=== PATIENT | female | born 1935 | race Caucasian/White ===

== ENCOUNTER 2016-07-12 13:34 | Inpatient (IN) | payer OTHER ==
[2016-07-12] MEDS ORDERED: IPRATROPIUM/ALBUTEROL 3 ML DEYVIAL IH ONE (13:58)
[2016-07-12] MEDS ORDERED: ALBUTEROL 3 ML DEYVIAL IH ONE (14:19)
[2016-07-12] MEDS ORDERED: predniSONE 20 MG TAB PO ONE (14:19)
--- NOTE | 2016-07-12 14:21 | EDPHY ---
HPI/HX/ROS/PE/MDM Narrative: Chief complaint: Cough, shortness of breath, chest pain HPI: Patient has a history of asthma for she usually takes albuterol as needed. She is visiting from [facility], arrived here 5-6 months ago. Has had worsening cough for the last 5 days, cough is productive of yellowish sputum. Some subjective fevers and chills but temperature is not measured at home. She has been complaining of worsening shortness of breath and fatigue. She is also having some chest pain, worsening with cough. No nausea or vomiting. Has a using her nebulizer without any significant relief. There has never been intubated in the past but does not take any chronic control medications. Patient only speaks Montserratian, translation is done with family members. ROS: 10 point Review of Systems is negative except as noted in the HPI. Physical exam: Gen: Awake, Alert, No Distress HEENT: Nose: no rhinorrhea Eyes: PERRLA, EOMI Mouth: Moist mucosa Neck: Supple, no JVD Chest: nontender, diffuse expiratory wheeze Heart: S1, S2 normal, no murmur Abd: Soft, non-tender, no guarding Back: no CVA tenderness, no midline tenderness Ext: no edema, non-tender Skin: no rash Neuro: CN II-XII intact, Sensation grossly intact, Strength 5/5 in bilateral upper and lower extremities ED Course: Chest x-ray: Diffuse infiltrates primarily greatest in the right upper lobe. Discussed with Dr. Guerra. Patient's chest x-ray is consistent with pneumonia. Blood cultures have been sent. She is getting any continues him at this time. I have ordered azithromycin and ceftriaxone. Will discuss with hospitalist for admission. - Data Points Laboratory Results: Laboratory Results 07/12/16 14:46 07/12/16 14:25 07/12/16 07/12/16 14:46 14:25 WBC 5.50 10^3/uL REJ (3.80-9.50) RBC 4.99 10^6/uL Not Reported (4.18-5.33) Hgb 13.2 g/dL Not Reported (12.6-16.3) Hct 40.9 % Not Reported (38.0-47.0) MCV 82.0 fL Not Reported (81.5-99.8) MCH 26.5 L pg Not Reported (27.9-34.1) MCHC 32.3 L g/dL Not Reported (32.4-36.7) RDW 16.0 H % Not Reported (11.5-15.2) Plt Count 139 L 10^3/uL Not Reported (150-400) MPV 10.0 fL Not Reported (8.7-11.7) Neut % (Auto) 65.0 % Not Reported (39.3-74.2) Lymph % (Auto) 21.8 % Not Reported (15.0-45.0) Coleman % (Auto) 12.5 % Not Reported (4.5-13.0) Eos % (Auto) 0.0 L % Not Reported (0.6-7.6) Baso % (Auto) 0.2 L % Not Reported (0.3-1.7) Nucleat RBC Rel Count 0.0 % Not Reported (0.0-0.2) Absolute Neuts (auto) 3.57 10^3/uL Not Reported (1.70-6.50) Absolute Lymphs (auto) 1.20 10^3/uL Not Reported (1.00-3.00) Absolute Monos (auto) 0.69 10^3/uL Not Reported (0.30-0.80) Absolute Eos (auto) 0.00 L 10^3/uL Not Reported (0.03-0.40) Absolute Basos (auto) 0.01 L 10^3/uL Not Reported (0.02-0.10) Absolute Nucleated RBC 0.00 10^3/uL Not Reported (0-0.01) Immature Gran % 0.5 % Not Reported (0.0-1.1) Immature Gran # 0.03 10^3/uL Not Reported (0.00-0.10) Sodium 134 mEq/L (134-144) Potassium 5.0 mEq/L (3.5-5.2) Chloride 96 L mEq/L (97-110) Carbon Dioxide 27 mEq/l (22-31) Anion Gap 11 mEq/L (8-16) BUN 12 mg/dL (7-23) Creatinine 0.7 mg/dL (0.6-1.0) Estimated GFR > 60 Glucose 92 mg/dL (70-100) Calcium 9.2 mg/dL (8.5-10.4) Medications Given: Discontinued Medications Albuterol (Proventil Neb) 10 ml IH CONT ONE Stop: 07/12/16 14:20 Last Admin: 07/12/16 14:51 Dose: 10 ml Albuterol/Ipratropium (Duoneb) 3 ml IH EDNOW ONE Stop: 07/12/16 13:59 Last Admin: 07/12/16 14:05 Dose: 3 ml Prednisone (Prednisone) 60 mg PO EDNOW ONE Stop: 07/12/16 14:20 Last Admin: 07/12/16 14:51 Dose: 60 mg General Time Seen by Provider: 07/12/16 14:07 Initial Vital Signs: Initial Vital Signs Temperature (C) 36.8 C 07/12/16 13:46 Heart Rate 104 H 07/12/16 13:46 Blood Pressure 156/116 H 07/12/16 13:46 O2 Sat (%) 83 L 07/12/16 13:46 O2 Delivery Mode Room Air O2 (L/minute) 3 Allergies/Adverse Reactions: No Known Allergies Allergy (Unverified 07/12/16 13:53) Home Medications: Medication Instructions Recorded NK [No Known Home Meds] 07/12/16 Departure - Departure Disposition: [facility] Inpatient Acute Clinical Impression: Pneumonia Condition: Fair
[2016-07-12 14:48] LABS: ANION GAP 11 mEq/L (8-16); CALCIUM 9.2 mg/dL (8.5-10.4); CARBON DIOXIDE 27 mEq/l (22-31); CHLORIDE 96 mEq/L (97-110); CREATININE 0.7 mg/dL (0.6-1.0); GLOMERULAR FILTRATION RATE > 60; GLUCOSE 92 mg/dL (70-100); SODIUM 134 mEq/L (134-144)
[2016-07-12 14:53] LABS: % IMMATURE GRANULYOCYTES 0.5 % (0.0-1.1); ABSOLUTE IMMATURE GRANULOCYTES 0.03 10^3/uL (0.00-0.10); ADD DIFF? NO; ADD MORPH? NO; ADD SCAN? NO; ATYPICAL LYMPHOCYTE FLAG 70 (0-99); FRAGMENT RBC FLAG 0 (0-99); HEMATOCRIT 40.9 % (38.0-47.0); HEMOGLOBIN 13.2 g/dL (12.6-16.3); LEFT SHIFT FLG 10 (0-99); LIPEMIA HEMOLYSIS FLAG 80 (0-99); MEAN CELL HEMOGLOBIN 26.5 pg (27.9-34.1); MEAN CELL HEMOGLOBIN CONCENTR. 32.3 g/dL (32.4-36.7); PLATELET CLUMPS FLAG 10 (0-99); PLATELET COUNT 139 10^3/uL (150-400); RED BLOOD CELL COUNT 4.99 10^6/uL (4.18-5.33)
[2016-07-12] MEDS ORDERED: AZITHROMYCIN 250 MG TAB PO ONE (15:09)
--- NOTE | 2016-07-12 15:11 | DX ---
Chest, Two Views - July 12, 2016 at 1412 hours History: Shortness of breath, possible pneumonia Comparison: None. Findings: Cardiac silhouette is mildly enlarged with atherosclerotic aorta. Thoracic dextroscoliosis. No pneumothorax. Bilateral diffuse interstitial opacities with more focal alveolar opacity in the ri ght upper lobe, consistent with bilateral pneumonia. Mid thoracic compression fracture. Impression: 1. Bilateral diffuse pneumonia, worse in the right upper lobe. 2. Midthoracic compression fracture. Consider DEXA bone scan evaluation. Findings and recommendations discussed with Emergency Department physician, Dr. Oscar Snyder, at 1 505 hours, July 12, 2016. Final report concurs with initial preliminary interpretation.
[2016-07-12] MEDS ORDERED: ONDANSETRON 4 MG/2 ML VIAL IVP PRN (15:56)
[2016-07-12] MEDS ORDERED: ONDANSETRON DISINTEGRATING 4 MG TAB PO PRN (15:56)
[2016-07-12] MEDS ORDERED: ACETAMINOPHEN 325 MG TAB PO PRN (15:56)
--- NOTE | 2016-07-12 16:40 | GHP ---
[f rep st] HISTORY AND PHYSICAL DATE OF ADMISSION: 07/12/2016 CHIEF COMPLAINT: Acute hypoxic respiratory failure, asthma. HISTORY OF PRESENT ILLNESS: The patient is a Swiss-speaking female presenting with significant shortness of breath for the past 5 days. It became so significant today that her grandchildren brought her in. Symptoms have been occurring for the past 5-6 days including shortness of breath, dry cough. Denies fevers, chills or sweats. Has had a sore throat. Denies headache or weight loss. Has had a decreased appetite and oral intake. Granddaughter and have been sick recently. Just moved from [facility] 5 months ago. She is living in [place] with grandchildren. She did receive a flu and Pneumovax shot this year. Denies myalgias, diarrhea, nausea or vomiting. No hemoptysis. REVIEW OF SYSTEMS: I completed a 10-point review of systems, negative, except as noted in HPI. PAST MEDICAL HISTORY: Asthma. PAST SURGICAL HISTORY: None. SOCIAL HISTORY: Moved from [facility] 5 months ago. Lives with her granddaughter. No alcohol, tobacco or illicits. MEDICATIONS: Asthma inhaler. Recent Pneumovax and influenza vaccines. ALLERGIES: No known drug allergies. PHYSICAL EXAM: VITAL SIGNS: Temperature is 36.8, blood pressure is 156/116, heart rate 104, respirations 20, 83% on room air, 96% on 3 liters. GENERAL: Patient is tired-appearing, sitting up in bed. HEENT: PERRLA, EOMI. Oropharynx clear. CV: Tachy, regular rate and rhythm. No murmurs, gallops or rubs. LUNGS: Mild inspiratory wheezing. No crackles or rhonchi. ABDOMEN: Soft, nontender, nondistended. Positive bowel sounds. : No suprapubic tenderness. MUSCULOSKELETAL: 5/5 upper or lower extremity strength. No joint swelling or pain. SKIN: Warm and dry. No ulceration. NEURO: 2 through 12 intact. PSYCH: Alert oriented x3. She is answering questions via her grandchildren in Swiss. LABS: Influenza is pending. Sodium 134, potassium 5.2, chloride 96, carbon dioxide 27, BUN 12, creatinine 0.7, glucose 92, calcium 9.2. WBC 5.9, hemoglobin 13, hematocrit 40, platelets 139. Chest x-ray: Bilateral infiltrates worse in the right upper lobe. I did review the scan with Dr. Guerra. Does not note any cavitary lesions. ASSESSMENT AND PLAN: 1. Acute hypoxic respiratory failure: due to asthma exacerbation. Trigger being viral versus bacterial infection. Would expect patient to have fevers and leukocytosis if this was bacterial. She has had only a dry cough. Influenza is pending. She received ceftriaxone and azithromycin here; cont these for now. Given that the patient is from [facility] and at high risk for TB, I will further evaluate chest with non-con CT, check AFB. Check urine strep and Legionella. Continue DuoNebs. Hold off on Pred until CT scan results. 2. Tachycardia: secondary to nebs versus dehydration. Will give gentle fluids. 3. Mild thoracic compression fracture: incidental on chest x-ray. The patient currently denies pain. Can check a vitamin D level. 4. Diet: Regular. 5. DVT prophylaxis: Lovenox. DISPOSITION: Patient warrants inpatient admission given acute hypoxic respiratory failure, quarantine, DuoNebs, oxygen and further chest imaging. /[id number]/MODL MTDD
--- NOTE | 2016-07-12 17:11 | CT ---
CT Chest Unenhanced History: Shortness of breath, cough, abnormal chest radiograph, recent travel from [facility]. Comparison: PA and lateral chest same day at 1412 hours. Technique: Axial unenhanced images were obtained through the chest. Coronal MIPs were performed. Dose reduction techniques were utilized. Findings: There are numerous noncalcified centrilobular nodules in the right upper lobe with patchy p redominantly peripheral consolidation in the right upper lobe, with tree-in-bud opacities and diffuse peribronchial thickening and mucous plugging throughout both lungs. There is complete atelectasis of the right middle lobe. Scattered bullae are present. There is no appreciable cavitation. Heart size is normal. A tiny pericardial effusion is present. Atherosclerosis is present in a normal caliber ao rta. Adenopathy including internal mammary and hilar adenopathy is noted. A precarinal lymph node marty sures approximately 2.4 x 1.5 cm (series 3 image 66). A severe compression fracture at T7 is age inde terminate, likely old, without retropulsion. A 26 Hounsfield unit 2.0 x 1.6 cm subcapsular structure in the right hepatic lobe (series 3 image 179) is incompletely visualized. Impression: 1. Tree-in-bud nodules, consolidation and noncalcified nodules in the right upper lobe with adenopath y, suspicious for tuberculosis. This could also be seen with atypical pneumonia, MARIA VICTORIA, or other etiolo gies. 2. Indeterminate hypodensity in the liver. Ultrasound or multiphase contrast-enhanced CT or MRI is re commended for further evaluation. 3. Complete right middle lobe atelectasis. 4. Peribronchial thickening with extensive mucous plugging. 5. Small pericardial effusion. 6. Age indeterminate likely old severe T7 compression fracture. 7. Additional findings as above. Findings discussed with Dr. Oscar Snyder, on July 12, 2016 at 1655 hours.
[2016-07-12] MEDS ORDERED: IPRATROPIUM/ALBUTEROL 3 ML DEYVIAL ONE (18:15)
[2016-07-12] MEDS: IPRATROPIUM/ALBUTEROL 3 ML DEYVIAL IH SCH (18:26)
[2016-07-13] MEDS ORDERED: OSELTAMIVIR PHOSPHATE 75 MG CAP ONE (00:35)
[2016-07-13] MEDS: OSELTAMIVIR PHOSPHATE 75 MG CAP PO SCH ×2 (01:46→09:18)
[2016-07-13 06:27] LABS: HEMATOCRIT 41.8 % (38.0-47.0); HEMOGLOBIN 13.3 g/dL (12.6-16.3); MEAN CELL HEMOGLOBIN 25.7 pg (27.9-34.1); MEAN CELL HEMOGLOBIN CONCENTR. 31.8 g/dL (32.4-36.7); MEAN CELL VOLUME 80.7 fL (81.5-99.8); RED BLOOD CELL COUNT 5.18 10^6/uL (4.18-5.33); RED CELL DISTRIBUTION WIDTH 16.3 % (11.5-15.2)
[2016-07-13 06:59] LABS: ANION GAP 11 mEq/L (8-16); CALCIUM 9.3 mg/dL (8.5-10.4); CARBON DIOXIDE 27 mEq/l (22-31); CHLORIDE 97 mEq/L (97-110); CREATININE 0.8 mg/dL (0.6-1.0); GLOMERULAR FILTRATION RATE > 60; GLUCOSE 124 mg/dL (70-100); POTASSIUM 5.1 mEq/L (3.5-5.2); SODIUM 135 mEq/L (134-144)
[2016-07-13] MEDS: IPRATROPIUM/ALBUTEROL 3 ML DEYVIAL IH SCH ×5 (08:32→22:14)
[2016-07-13] MEDS: AZITHROMYCIN 250 MG TAB PO SCH (09:17)
[2016-07-13] MEDS: ENOXAPARIN 40 MG/0.4 ML SYR SC SCH (09:18)
[2016-07-13] MEDS: NS 1,000 ML IV SCH (09:28)
[2016-07-13] MEDS ORDERED: predniSONE 20 MG TAB PO ONE (13:40)
[2016-07-13] MEDS ORDERED: ALBUTEROL 3 ML DEYVIAL IH PRN (13:40)
--- NOTE | 2016-07-13 14:24 | GCON ---
[f rep st] CONSULTATION INFECTIOUS DISEASE CONSULTATION DATE OF CONSULTATION: 07/13/2016 REFERRING PHYSICIAN: Lucero Mays MD REASON FOR CONSULTATION: Pneumonia with possible TB for further evaluation and opinion. CHIEF COMPLAINT: Shortness of breath. HISTORY OF PRESENTING ILLNESS: This is a 80-year-old [place]er female with a past medical history si gnificant for asthma, who was brought in yesterday after increasing shortness of breath over the pas t 5-6 days. She apparently came here about 5 months ago and is just visiting. She is planning to b e here for a possible 6 months, but the family is working on a [employer] extension at present. She state s that she has always had some intermittent coughing with phlegm, but does not recall having any blo od-streaked sputum or bloody sputum. Over the past 5-6 days she has been having increasing shortnes s of breath with cough with minimal sputum production. She was seen at [facility] and was advised to come here for further evaluation. In the ER, they did a chest x-ray which showed bilateral diffuse pneumonia, worse on the right upper lobe. This was followed up by a CAT scan, which showed tree-in- bud nodules, consolidation and noncalcified nodules in the right upper lobe with adenopathy suspicio us for tuberculosis. She also had complete middle lobe atelectasis. Blood cultures x2 sets were do ne. A sputum culture was done and the sputum was sent for AFB. She remains in airborne isolation a t present. She is on O2 via nasal cannula at 3 L, but was as high as 7 L early this morning. She w as started empirically on antibiotics with ceftriaxone and azithromycin. She had a flu A and B PCR that was done, which is now positive for influenza A. She has now been started on Tamiflu as well. According to the daughter, she has never been diagnosed with tuberculosis and has had no known cont acts with tuberculosis in [facility] or here. There have been several family members who have been sick here, including patient's , as well as the patient's daughter who live here. They cannot tel l me if they have all been officially or formally diagnosed with influenza or not, but have certainl y had respiratory symptoms. Per the granddaughter, nobody has been coughing up bloody sputum. Infe ctious Disease is now consulted for further evaluation and opinion of above. History is obtained pu rely from the medical records, as well as the granddaughter's translation to the patient as patient does not speak Egyptian. REVIEW OF SYSTEMS: GENERAL: Denies any fever or shaking chills. Occasionally does have drenching night sweats and has had those for several months. Having a mild headache at present. EYES: No ch dov in vision. ENT: No sore throat, difficulty swallowing ear pain or drainage. She denies choki ng on her food. She is edentulous and has dentures. CARDIOVASCULAR: Denies any chest pain or rapi d heart beat. RESPIRATORY: Shortness of breath, cough, and sputum production. ABDOMEN: No nausea , vomiting, abdominal pain, or diarrhea. : No dysuria. BACK: No back pain or flank pain. EXTR EMITIES: Denies any swelling of the legs. MUSCULOSKELETAL: Occasional joint pains, but no joint s welling. SKIN: Denies any rashes or open wounds. Rest of 10-point review of systems essentially negative, except for above. PAST MEDICAL HISTORY: Significant for asthma and hypothyroidism. PAST SURGICAL HISTORY: None. SOCIAL HISTORY: She is visiting family here from [facility] and came here 5 months ago. She used to smo ke several years ago, but does not smoke currently. Does not drink alcohol or use illicit drugs. S he, after coming here, was given the influenza vaccine, as well as a Pneumovax vaccine from the [facility]. The granddaughter also says that she was worked up for TB in [facility] with a chest x-ray, which apparently was negative. They cannot tell me if she has had any skin testing or any other ty pe of workup for tuberculosis. ALLERGIES: No known drug allergies. PHYSICAL EXAM: VITALS: Temperature current 36.9, pulse is 87, blood pressure 126/68, saturations a re 97% on 3 L O2 via nasal cannula, respiratory rate is 18. GENERAL: Patient is sitting up in bed, with some shortness of breath and tachypnea. HEENT: Head is normocephalic, atraumatic. Eyes are without conjunctival injection or petechiae noted. Oropharynx is clear. No posterior pharyngeal er ythema or thrush. She is edentulous. CARDIOVASCULAR: S1, S2. Regular rate and rhythm. No obviou s murmurs appreciated. RESPIRATORY: Coarse breath sounds bilaterally with wheezing appreciated. A BDOMEN: Positive bowel sounds in all 4 quadrants. Soft, nontender, nondistended. No organomegaly appreciated. EXTREMITIES: No obvious lower extremity edema. MUSCULOSKELETAL: No joint effusions appreciated or pain on palpation of the joints. SKIN: No obvious rashes or open wounds. LABS: White blood cell count is 8.3, hemoglobin 13.3, platelets are 186. Sodium 135, potassium 5.1 , chloride is 97, bicarb is 27, BUN is 16, creatinine 0.8, glucose is 124. Influenza A and B PCR po sitive. Urine Legionella pending. Urine streptococcal pneumoniae pending. Microbiology: Blood cult ures x2 sets are pending. Sputum culture with 2+ polys and rare gram-positive cocci in clusters. C ulture is pending, and AFB sputum x1 is pending. ASSESSMENT: 1. Influenza A with possible superimposed bacterial pneumonia. 2. Right upper lobe consolidation with nodules in a tree-in-bud fashion and adenopathy. rule out fo r TB. PLAN: For now, given her underlying background, CAT scan findings would continue workup for tubercu losis. Maintain in airborne precautions until 3 negative sputums for AFB. Will check a T spot on h er as well, collect 2 more sputums for AFB for further evaluation. Await sputum culture. Await blo od cultures. Continue with empiric antimicrobials with ceftriaxone and azithromycin for now, and co ntinue Tamiflu as well. The above plan was explained to the granddaughter in detail. Thank you very much for providing this opportunity to care for your patient in consultation. Will yasemin huangw CAT scan further with Radiology. /[id number]/MODL
--- NOTE | 2016-07-13 14:56 | HOSPPROG ---
Hospitalist Progress Note Assessment/Plan: 80 yo F visiting from [facility] presenting wit acute hypoxic respiratory failure and pna # acute hypoxic respiratory failure: 2/2 PNA and likely exacerbation of RAD with diffuse wheezing/rales and increased wob on exam. Presented at 83% on RA on arrival and has required from 3-7 L of supplemental o2 to maintain o2 sats in the 90s. Tx for PNA as below, nebs scheduled. # PNA: influenza positive but suspect simultaneous bacterial pna. Chest CT personally reviewed and interpreted and notable for "tree in bud" nodules as well as consolidation in RUL concerning for TB. Patient states she has previously been tested for TB and did not have it, unclear what testing was performed. ID consulted, AFB cultures pending, on airborne precautions and negative pressure for now, continue ctx/azithro for CAP coverage. # influenza: contributing to above, started on tamiflu # thoracic compression fracture: noted incidentally on imaging, not symptomatic , defer to pcp starting tx for osteoporosis. Vitamin D levels normal. # dispo: IP status, will need > 48 hours stay for eval/mgmt of above Patient new to my care. Old records reviewed and summarized as above. Care plan reviewed with ID as above. Subjective: no significant overnight events, patient says via public relations supervisor that she feels better, that she has no pain and that her breathing is "sometimes like this" Objective: Vital Signs Temp Pulse Resp BP Pulse Ox 36.9 C 87 18 126/68 H 86 L 07/13/16 11:04 07/13/16 11:04 07/13/16 11:04 07/13/16 11:04 07/13/16 14:00 Microbiology 07/12/16 22:30 - Final Sputum, Induced/Suctioned Laboratory Results 07/13/16 06:00 07/13/16 06:00 awake alert thin chronically ill appearing anicteric op clear rrr no mrg soft nt nd no cce warm dry well perfused oriented appropirate - Time Spent With Patient Time Spent with Patient: greater than 35 minutes Time Spent with Patient: Greater than 35 minutes spent on this patients care, greater than 50% of time spent counseling, educating, and coordinating care regarding the above mentioned plan. ICD10 Worksheet Patient Problems: Problems Problem Status Onset Pneumonia Acute
[2016-07-13] MEDS: ACETYLCYSTEINE 10% 30 ML VIAL IH SCH ×3 (16:15→22:14)
[2016-07-13] MEDS: OSELTAMIVIR 6 MG/ML UDSYR PO SCH (19:56)
[2016-07-14] MEDS: IPRATROPIUM/ALBUTEROL 3 ML DEYVIAL IH SCH ×4 (02:52→22:25)
[2016-07-14] MEDS: ACETYLCYSTEINE 10% 30 ML VIAL IH SCH ×4 (02:52→22:26)
[2016-07-14 05:56] LABS: ALANINE AMINOTRANSFERASE 29 IU/L (9-52); ALBUMIN 3.2 g/dL (3.5-5.0); ALKALINE PHOSPHATASE 60 IU/L (38-126); ANION GAP 7 mEq/L (8-16); ASPARTATE AMINOTRANSFERASE 24 IU/L (14-46); BILIRUBIN,TOTAL 0.4 mg/dL (0.1-1.4); CALCIUM 8.3 mg/dL (8.5-10.4); CARBON DIOXIDE 25 mEq/l (22-31); CHLORIDE 106 mEq/L (97-110); CREATININE 0.7 mg/dL (0.6-1.0); GLOMERULAR FILTRATION RATE > 60; GLUCOSE 120 mg/dL (70-100); POTASSIUM 4.9 mEq/L (3.5-5.2); SODIUM 138 mEq/L (134-144)
[2016-07-14] MEDS: AZITHROMYCIN 250 MG TAB PO SCH (08:00)
[2016-07-14] MEDS: OSELTAMIVIR 6 MG/ML UDSYR PO SCH ×2 (08:00→21:17)
[2016-07-14] MEDS: ENOXAPARIN 40 MG/0.4 ML SYR SC SCH (08:00)
[2016-07-14] MEDS: predniSONE 20 MG TAB PO SCH (08:01)
[2016-07-14] MEDS ORDERED: [UNRECOGNIZED DRUG - OTHER] PO SCH (09:00)
--- NOTE | 2016-07-14 14:56 | HOSPPROG ---
Hospitalist Progress Note Assessment/Plan: 80 yo F visiting from [facility] presenting wit acute hypoxic respiratory failure and pna # acute hypoxic respiratory failure: 2/2 PNA and likely exacerbation of RAD in setting of influenza. Presented at 83% on RA on arrival and continues to require 3L to maintain o2 sats in the low 90s # PNA: influenza positive but suspect simultaneous bacterial pna. Chest CT personally reviewed and interpreted and notable for "tree in bud" nodules as well as consolidation in RUL concerning for TB. ID involved, afb culture x 3 pending, airborne precautions. # influenza: contributing to above, started on tamiflu # thoracic compression fracture: noted incidentally on imaging, not symptomatic , defer to pcp starting tx for osteoporosis. Vitamin D levels normal. # malnutrition: with BMI of 17, cachectic on exam, appetite is poor. Dietary consulted. # dispo: IP status, will need > 48 hours stay for eval/mgmt of above Subjective: no significant overnight events, patient states she is feeling better,feels her breathing has improved Objective: Vital Signs Temp Pulse Resp BP Pulse Ox 36.2 C 100 15 135/88 H 94 07/14/16 08:00 07/14/16 10:19 07/14/16 10:19 07/14/16 08:00 07/14/16 10:19 Microbiology 07/12/16 22:30 - Final Sputum, Induced/Suctioned 07/12/16 22:30 Mycobacterial Smear (GORGE) - Final Sputum, Induced/Suctioned Laboratory Results 07/13/16 06:00 07/14/16 04:32 07/13/16 07/14/16 07/15/16 05:59 05:59 05:59 Output Total 600 Balance -600 awake alert thin chronically ill appearing anicteric op clear rrr no mrg soft nt nd no cce warm dry well perfused oriented appropirate ICD10 Worksheet Patient Problems: Problems Problem Status Onset Pneumonia Acute
--- NOTE | 2016-07-14 16:20 | PCMIDPN ---
Assessment/Plan: # Influenza PNA with possible superimposed CAP --patient to remain on Tamiflu, ceftriaxone and azithromycin for now # RUL infiltrate in patient from [facility], reviewed CT personally and patient with clear right upper lobe infiltrate with tree-in-bud pattern. No known TB contacts. 1st AFB negative --r/o TB with 3 AFBs, TB NAAT --continue respiratory isolation which will cover for TB and influenza Medications 3 Generic Name Dose Route Start Last Admin Trade Name Freq PRN Reason Stop Dose Admin Prednisone 40 mg 07/14/16 09:00 07/14/16 08:01 Prednisone PO 01/10/17 08:59 40 mg DAILY [facility] Oseltamivir Phosphate 30 mg 07/12/16 21:00 07/14/16 08:00 Tamiflu Oral Suspension PO 07/17/16 22:00 30 mg Day # 2 BID [facility] Ceftriaxone Sodium/Dextrose 50 mls @ 100 mls/hr 07/12/16 09:00 07/14/16 08:00 Rocephin 1 Gm (Premix) IV 08/12/16 08:59 50 mls Day # 3 DAILY [facility] Protocol Azithromycin 500 mg 07/12/16 09:00 07/14/16 08:00 Zithromax PO 08/12/16 08:59 500 mg Day # 3 DAILY [facility] Protocol Microbiology 07/12 sputum culture negative 07/12 blood cultures (2) NGTD 07/12 sputum AFB smear negative Subjective: Did have 1 loose stool , feels coughing is slightly improved. Family is at bedside, patient is Tunisian speaking only with family translating Objective: Vital Signs Temp Pulse Resp BP Pulse Ox 36.2 C 100 15 135/88 H 94 07/14/16 08:00 07/14/16 10:19 07/14/16 10:19 07/14/16 08:00 07/14/16 10:19 Microbiology 07/12/16 22:30 - Final Sputum, Induced/Suctioned 07/12/16 22:30 Mycobacterial Smear (GORGE) - Final Sputum, Induced/Suctioned Laboratory Results 07/13/16 06:00 07/14/16 04:32 07/13/16 07/14/16 07/15/16 05:59 05:59 05:59 Output Total 600 Balance -600 - Physical Exam General Appearance: thin, other (Elderly woman who appears generally nontoxic) EENT: other (No teeth, moist mucous membranes), No scleral icterus Respiratory: wheezing, No accessory muscle use Neck: supple Extremities: No pedal edema Abdomen: non-tender, soft Skin: No rash Neuro/Psych: alert ICD10 Worksheet Patient Problems: Problems Problem Status Onset Pneumonia Acute
[2016-07-15] MEDS: IPRATROPIUM/ALBUTEROL 3 ML DEYVIAL IH SCH ×2 (03:51→09:20)
[2016-07-15] MEDS: ACETYLCYSTEINE 10% 30 ML VIAL IH SCH ×3 (03:51→17:19)
[2016-07-15] MEDS: NS 1,000 ML IV SCH (04:06)
[2016-07-15] MEDS: ENOXAPARIN 40 MG/0.4 ML SYR SC SCH ×2 (08:56→11:12)
[2016-07-15] MEDS: predniSONE 20 MG TAB PO SCH (08:56)
[2016-07-15] MEDS: OSELTAMIVIR 6 MG/ML UDSYR PO SCH ×2 (08:56→21:43)
[2016-07-15] MEDS: AZITHROMYCIN 250 MG TAB PO SCH (08:57)
--- NOTE | 2016-07-15 09:46 | CPEKG ---
Heart Rate: 130 RR Interval: 462 P-R Interval: 140 QRSD Interval: 86 QT Interval: 300 QTC Interval: 441 P [place]: 54 QRS [place]: 43 T Wave [place]: 103 EKG Severity - ABNORMAL ECG - EKG Impression: SINUS TACHYCARDIA EKG Impression: PROBABLE ANTERIOR INFARCT, ACUTE Electronically Signed By: Ken Sánchez 15-Jul-2016 22:24:58
[2016-07-15 10:07] LABS: BASE EXCESS -6.4 mEq/L (-2.5-2.5); BICARBONATE 25 mEq/L (22-26); MEASURED OXYGEN SATURATION 97 % (92-95); PO2 132 mmHg (65-75); TCO2 28 mEq/L (23-27)
[2016-07-15 10:08] LABS: BIPAP YES
[2016-07-15 10:09] LABS: EXP PRESSURE 8; INSP PRESSURE 16; O2 CONCENTRATIION 60 % (0-100); P/F RATIO 220 RATIO
[2016-07-15 10:10] LABS: PCO2 86 mmHg (34-38)
[2016-07-15 10:47] LABS: % IMMATURE GRANULYOCYTES 0.5 % (0.0-1.1); ABSOLUTE IMMATURE GRANULOCYTES 0.07 10^3/uL (0.00-0.10); ADD DIFF? NO; ADD MORPH? NO; ADD SCAN? NO; ATYPICAL LYMPHOCYTE FLAG 10 (0-99); FRAGMENT RBC FLAG 0 (0-99); HEMATOCRIT 43.5 % (38.0-47.0); HEMOGLOBIN 13.1 g/dL (12.6-16.3); LEFT SHIFT FLG 10 (0-99); LIPEMIA HEMOLYSIS FLAG 80 (0-99); MEAN CELL HEMOGLOBIN 26.3 pg (27.9-34.1); MEAN CELL HEMOGLOBIN CONCENTR. 30.1 g/dL (32.4-36.7); MEAN CELL VOLUME 87.2 fL (81.5-99.8); MEAN PLATELET VOLUME 10.8 fL (8.7-11.7); PLATELET CLUMPS FLAG 0 (0-99); PLATELET COUNT 227 10^3/uL (150-400); RED BLOOD CELL COUNT 4.99 10^6/uL (4.18-5.33); RED CELL DISTRIBUTION WIDTH 16.6 % (11.5-15.2)
[2016-07-15 10:54] LABS: ALANINE AMINOTRANSFERASE 35 IU/L (9-52); ALBUMIN 3.5 g/dL (3.5-5.0); ALKALINE PHOSPHATASE 65 IU/L (38-126); ANION GAP 9 mEq/L (8-16); ASPARTATE AMINOTRANSFERASE 36 IU/L (14-46); BILIRUBIN,TOTAL 0.6 mg/dL (0.1-1.4); CALCIUM 8.5 mg/dL (8.5-10.4); CARBON DIOXIDE 27 mEq/l (22-31); CHLORIDE 105 mEq/L (97-110); CREATININE 0.7 mg/dL (0.6-1.0); GLOMERULAR FILTRATION RATE > 60; GLUCOSE 221 mg/dL (70-100); POTASSIUM 4.8 mEq/L (3.5-5.2); SODIUM 141 mEq/L (134-144); TOTAL PROTEIN 6.8 g/dL (6.3-8.2)
[2016-07-15] MEDS: AZITHROMYCIN IV 500 MG in D5W 250 ML IV SCH (10:59)
[2016-07-15 11:06] LABS: TROPONIN I 0.014 ng/mL (0-0.034)
--- NOTE | 2016-07-15 12:34 | CPEKG ---
Heart Rate: 94 RR Interval: 638 P-R Interval: 148 QRSD Interval: 84 QT Interval: 360 QTC Interval: 451 P [place]: 56 QRS [place]: 48 T Wave [place]: 119 EKG Severity - ABNORMAL ECG - EKG Impression: SINUS RHYTHM EKG Impression: CONSIDER ANTEROSEPTAL INFARCT EKG Impression: ABNORMAL T, CONSIDER ISCHEMIA, LATERAL LEADS Electronically Signed By: Ken Sánchez 15-Jul-2016 22:24:28
[2016-07-15] MEDS ORDERED: ASPIRIN 325 MG TAB PO ONE (13:51)
[2016-07-15] MEDS ORDERED: METOPROLOL TARTRATE 25 MG TAB PO SCH (14:00)
[2016-07-15] MEDS ORDERED: NITROGLYCERIN/D5W 50 MG/250 ML BOTTLE IV ONE (15:07)
--- NOTE | 2016-07-15 15:09 | CPEKG ---
Heart Rate: 125 RR Interval: 480 P-R Interval: 148 QRSD Interval: 80 QT Interval: 292 QTC Interval: 421 P [place]: 54 QRS [place]: 56 T Wave [place]: 108 EKG Severity - ABNORMAL ECG - EKG Impression: SINUS TACHYCARDIA EKG Impression: CONSIDER ANTEROSEPTAL INFARCT EKG Impression: NONSPECIFIC T ABNORMALITIES, LATERAL LEADS Electronically Signed By: Rigoberto Gray 15-Jul-2016 16:09:27
[2016-07-15] MEDS ORDERED: MIDAZOLAM 2 MG/2 ML VIAL ONE ×2 (15:16→16:01)
[2016-07-15] MEDS ORDERED: LIDOCAINE 1% 30 ML SDV ONE (15:16)
[2016-07-15] MEDS ORDERED: fentaNYL 100 MCG/2 ML INJ ONE ×2 (15:16→16:02)
[2016-07-15 15:17] LABS: BICARBONATE 26 mEq/L (22-26); MEASURED OXYGEN SATURATION 92 % (92-95); PO2 77 mmHg (65-75); TCO2 28 mEq/L (23-27)
[2016-07-15] MEDS ORDERED: IOPAMIDOL (ISOVUE 370) 100 ML BTL IV ONE (15:17)
[2016-07-15] MEDS ORDERED: PROPOFOL/EMULSION 1,000 MG/100 ML BOTTLE IV ONE (15:18)
[2016-07-15 15:20] LABS: % IMMATURE GRANULYOCYTES 0.5 % (0.0-1.1); ABSOLUTE IMMATURE GRANULOCYTES 0.07 10^3/uL (0.00-0.10); ADD DIFF? NO; ADD MORPH? NO; ADD SCAN? NO; ATYPICAL LYMPHOCYTE FLAG 0 (0-99); FRAGMENT RBC FLAG 0 (0-99); HEMATOCRIT 42.2 % (38.0-47.0); HEMOGLOBIN 12.8 g/dL (12.6-16.3); LEFT SHIFT FLG 10 (0-99); LIPEMIA HEMOLYSIS FLAG 80 (0-99); MEAN CELL HEMOGLOBIN 25.8 pg (27.9-34.1); MEAN CELL HEMOGLOBIN CONCENTR. 30.3 g/dL (32.4-36.7); MEAN CELL VOLUME 85.1 fL (81.5-99.8); MEAN PLATELET VOLUME 10.1 fL (8.7-11.7); PLATELET CLUMPS FLAG 0 (0-99); PLATELET COUNT 211 10^3/uL (150-400); RED BLOOD CELL COUNT 4.96 10^6/uL (4.18-5.33); RED CELL DISTRIBUTION WIDTH 16.4 % (11.5-15.2)
[2016-07-15 15:20] LABS: BASE EXCESS -3.6 mEq/L (-2.5-2.5)
[2016-07-15 15:23] LABS: BIPAP YES; EXP PRESSURE 8; INSP PRESSURE 16
[2016-07-15 15:24] LABS: O2 CONCENTRATIION 40 % (0-100); P/F RATIO 193 RATIO; PCO2 71 mmHg (34-38)
[2016-07-15 15:35] LABS: INR 0.98 (0.83-1.16); PROTIME(PATIENT) 12.9 SEC (12.0-15.0)
[2016-07-15 15:43] LABS: ALANINE AMINOTRANSFERASE 40 IU/L (9-52); ALBUMIN 3.5 g/dL (3.5-5.0); ALKALINE PHOSPHATASE 67 IU/L (38-126); ANION GAP 10 mEq/L (8-16); ASPARTATE AMINOTRANSFERASE 34 IU/L (14-46); BILIRUBIN,TOTAL 0.5 mg/dL (0.1-1.4); CALCIUM 8.4 mg/dL (8.5-10.4); CARBON DIOXIDE 26 mEq/l (22-31); CHLORIDE 103 mEq/L (97-110); CREATININE 0.7 mg/dL (0.6-1.0); GLOMERULAR FILTRATION RATE > 60; GLUCOSE 162 mg/dL (70-100); POTASSIUM 4.9 mEq/L (3.5-5.2); TOTAL PROTEIN 6.6 g/dL (6.3-8.2)
--- NOTE | 2016-07-15 15:52 | GCON ---
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 REASON FOR ADMISSION: Acute hypercarbic respiratory failure, chest pain. The patient is a 80-year-old [place] female, who was admitted on 07/12/2016, with acute hypoxic res piratory failure. At that time, was felt to be secondary to an asthma exacerbation. She was initia lly admitted to the floor, begun on antibiotics and frequent nebulized treatments. Over the course of her hospitalization, she made little improvement. She was also diagnosed with pneumonia, and att empts were made to rule her out for tuberculosis. A CT scan was performed, which showed tree-in-bud nodules as well as a right upper lobe consolidation. On July 15, she took a turn for the worse . Became markedly hypoxemic as well as worsening breathlessness. Arterial blood gas was performed that showed significant hypercarbia. She was placed on BiPAP and subsequently admitted to the [facility] care unit, where she began complaining of severe chest pain. A repeat ABG showed minimal simmons e in her hypercarbia, and she was subsequently intubated and placed on mechanical ventilation. Echo cardiogram reveals significant wall-motion abnormalities. EKG was somewhat unremarkable. Cardiolog y has been consulted. She will be taken to the cardiac catheterization lab later. PAST MEDICAL HISTORY: Significant for asthma. PAST SURGICAL HISTORY: None. ALLERGIES: No known allergies to medications. SOCIAL HISTORY: No history of tobacco use. No history of alcohol use. She has recently moved from [facility] months ago, and she lives with a granddaughter. She has excellent family support. PHYSICAL EXAM: VITAL SIGNS: Blood pressure is 145/99, pulse is 88, respirations are 18, temperatur e 36.3, oxygen saturation 100% on 18 L on BiPAP. GENERAL: She is a thin somewhat frail elderly Nep[place] lese female, who is resting comfortably currently on mechanical ventilation. HEENT: Eyes are DAVID, EOMI. Throat endotracheal tube is in good position. NECK: Supple. No cervical adenopathy. HEAR T: Regular rate and rhythm with a 2/6 systolic murmur at the left sternal border, without radiation . LUNGS: Diminished breath sounds with mild prolongation expiratory phase, but there is no wheeze. ABDOMEN: Soft, nontender. Bowel sounds are present in all 4 quadrants. EXTREMITIES: No clubbin g, cyanosis, or edema. LABORATORIES: White count 12.9, hemoglobin of 14, hematocrit 42, platelet count 211. Arterial blood gas: pH is 7.19, pCO2 71, pO2 of 77, bicarb 28, oxygen saturation 92%. This was on BiPAP. Sodium is 141, potassium 4.8, chloride 105, CO2 is 26, BUN is 8, creatinine 0.7, glucose is 221. She was positive for influenza A. Chest x-ray today shows progression in the right upper lobe consolidation and worsening pneumonia. Echocardiogram showed wall motion abnormalities. CT scan of the chest on July 12, showed tree-in-bud nodules with right upper lobe consolidation, and some evidence of adenopathy. IMPRESSION: 1. Acute hypercarbic respiratory failure. 2. Asthma. 3. Right upper lobe pneumonia. 4. Chest pain. 5. Congestive heart failure with wall motion abnormalities. 6. History of asthma. RECOMMENDATIONS: 1. Continue mechanical ventilation. 2. Patient will be going to the cardiac catheterization lab for evaluation. 3. Adequate sedation. 4. DVT and PE prophylaxis. 5. Stress ulcer prophylaxis. 6. Close cardiovascular monitoring. /[id number]/MODL
[2016-07-15 15:53] LABS: TROPONIN I 0.083 ng/mL (0-0.034)
--- NOTE | 2016-07-15 15:57 | GPN ---
[f rep st] PROCEDURE NOTE REASON FOR INTUBATION: Hypercarbic respiratory failure. ANESTHESIA GIVEN: She was given Versed 2 mg as well as succinylcholine 50 mg. DESCRIPTION OF PROCEDURE: The procedure was performed in the intensive care unit with continuous pu lse ox EKG and blood pressure monitoring. Please note, patient is in negative pressure room. All i n attendance were wearing N95 masks. Via GlideScope, patient was intubated with a #8 endotracheal tube and taped at 24 cm at the lip. Tr acheal position was confirmed via capnograph. A #8 endotracheal tube was then taped in place. Gin ent tolerated the procedure well. There were no apparent complications. Portable chest x-ray has ellyn valentin called for. /[id number]/MODL
[2016-07-15] MEDS ORDERED: PROPOFOL/EMULSION 100 ML IV SCH (16:00)
--- NOTE | 2016-07-15 16:01 | HOSPPROG ---
Hospitalist Progress Note Assessment/Plan: Assessment: 80 yo F p/w acute hypoxic respiratory failure and influenza pneumonia Plan: # acute hypoxic and hypercapnic respiratory failure: evidenced by SpO2 83% w/ objective tachypnea (RR 22) and visible respiratory distress w/ accessory muscle use w/ pH 7.1 and pCO2 86, acutely worsened this AM 2/2 acute reactive airway exacerbation - placed on BiPAP - initiated reactive airway tx - transfer to SDU - repeat ABG # acute reactive airway exacerbation: evidenced by diffuse wheezes, tachypnea 2/ 2 PNA - cont on prednisone and scheduled duonebs - BiPAP - dynamic EKG changes raising possibility of myocardial ischemia - dimer neg for age adjustment - get stat Echo to eval for wall motion abnl, trend trops # pneumonia: 2/2 influenza A and also possible bacterial component - cont tamiflu and azithro/ctx - CXR w/ worsening in RUL - AFB neg x 2, 3rd pending # thoracic compression fracture: noted incidentally on imaging, not symptomatic , defer to pcp starting tx for osteoporosis. Vitamin D levels normal. # severe protein calorie malnutrition: with BMI of 17, cachectic on exam, appetite is poor. Dietary consulted. diet. regular w/ supplements code. full ppx. high risk, lovenox 40 dispo. 45 minutes of critical care time spent at bedside w/ patient and discussing plan of care w/ family member, patient remains high risk of morbidity and mortality Subjective: Patient with clear respiratory distress this morning Objective: Vital Signs Temp Pulse Resp BP Pulse Ox 36.3 C 88 18 145/99 H 100 07/15/16 14:12 07/15/16 14:13 07/15/16 14:12 07/15/16 14:12 07/15/16 14:12 Microbiology 07/13/16 22:15 Mycobacterial Smear (GORGE) - Final Sputum, Expectorated 07/12/16 22:30 - Final Sputum, Induced/Suctioned Sputum Culture - Final Laboratory Results 07/15/16 15:10 07/14/16 07/15/16 07/16/16 05:59 05:59 05:59 Intake Total 2497 Output Total 600 Balance -600 2497 PT 12.9 SEC (12.0-15.0) 07/15/16 15:14 INR 0.98 (0.83-1.16) 07/15/16 15:14 - Physical Exam Constitutional: uncomfortable, cachectic, No no apparent distress, No not in pain Cardiovascular: tachycardia, No systolic murmur, No irregularly irregular, No edema Respiratory: expiratory wheeze, bronchial breath sounds, respiratory distress, rhonchi (Bilaterally on inspiration), other (Accessary muscle use) Gastrointestinal: normoactive bowel sounds, soft, non-tender abdomen, no palpable masses Psychiatric: not encephalopathic, anxious ICD10 Worksheet Patient Problems: Problems Problem Status Onset Pneumonia Acute
[2016-07-15] MEDS ORDERED: SUCCINYLCHOLINE CHLORIDE*ANESTHESIA ONLY*200 MG/10 ML SYR IVP ONE (16:03)
[2016-07-15 16:11] LABS: SODIUM 139 mEq/L (134-144)
--- NOTE | 2016-07-15 17:33 | CPIP ---
[f rep st] INVASIVE CARDIAC PROCEDURE DATE OF PROCEDURE: 07/15/2016 PROCEDURES: 1. Coronary angiography. 2. Left ventriculography. INDICATIONS: 1. Chest pain. 2. Segmental wall motion abnormalities on echocardiogram, concerning for ischemia. ACCESS: Patient was prepped and draped in sterile fashion. 1% lidocaine was used to anesthetize th e right inguinal region. A 6-Pakistani introducer sheath was placed selectively in the right common fe moral artery via modified Seldinger technique. 1% lidocaine was used to anesthetize the left inguin al region. A 6-Pakistani introducer sheath was placed selectively into the left common femoral vein vi a modified Seldinger technique. CORONARY ANGIOGRAPHY: A 6-Pakistani JL4 was advanced to the left main coronary artery and images obtai gonzalez. The left main coronary artery bifurcated into an LAD and circumflex coronary arteries. The le ft main coronary artery appeared normal. The left anterior descending coronary artery gave rise to 2 diagonal branches. The left anterior descending coronary artery and its complement of diagonal br anches appeared normal. The circumflex coronary artery was a dominant vessel. The circumflex coron prince artery gave rise to 2 OM branches, as well as several posterolateral branches and a posterior de scending coronary artery. The circumflex coronary artery and its complement of branches appeared no rmal. A 6-Pakistani JR4 was advanced to the right coronary artery and images obtained. The right isatu nary artery is nondominant. The right coronary artery appeared normal. LEFT VENTRICULOGRAPHY: A 6-Pakistani pigtail catheter was advanced in the left ventricle and images ob tained. Left ventricle is normal in size with reduced systolic function. The estimated ejection fr action was 35%. There was basilar hyperkinesis, as well as apical hyperkinesis giving the appearanc e of a Takotsubo cardiomyopathy. COMPLICATIONS: None. CONCLUSIONS: 1. Normal coronary arteries. 2. Takotsubo cardiomyopathy. /[id number]/MODL
[2016-07-15] MEDS ORDERED: MIDAZOLAM 2 MG/2 ML VIAL IVP ONE (19:00)
[2016-07-15] MEDS ORDERED: SUCCINYLCHOLINE CHLORIDE 200 MG/10 ML VIAL IVP ONE (19:00)
[2016-07-15] MEDS ORDERED: fentaNYL 100 MCG/2 ML INJ IVP ONE (19:00)
[2016-07-15] MEDS: fentaNYL/NACL 100 ML IV SCH (19:28)
[2016-07-15] MEDS ORDERED: FUROSEMIDE 40 MG/4 ML VIAL ONE (19:37)
[2016-07-15] MEDS: methylPREDNISolone SOD SUCC 125 MG/2 ML VIAL IVP SCH (19:40)
[2016-07-15] MEDS: FUROSEMIDE 20 MG/2 ML VIAL IVP SCH (19:43)
[2016-07-15] MEDS: CHLORHEXIDINE GLUCONATE 15 ML UDL PO SCH (20:00)
[2016-07-15 20:19] LABS: BASE EXCESS -0.6 mEq/L (-2.5-2.5); BICARBONATE 24 mEq/L (22-26); MEASURED OXYGEN SATURATION 100 % (92-95); PCO2 38 mmHg (34-38); PO2 303 mmHg (65-75); TCO2 25 mEq/L (23-27)
[2016-07-15 20:20] LABS: END TIDAL CO2 27; O2 CONCENTRATIION 100 % (0-100); P/F RATIO 303 RATIO; PATIENT RATE 20; PRESSURE SUPPORT 7
[2016-07-15] MEDS ORDERED: ALBUTEROL 60 PUFFS/8 GM MDI IH PRN (20:58)
[2016-07-15] MEDS: FAMOTIDINE 20 MG/NACL 50 ML IV SCH (21:43)
[2016-07-16] MEDS: methylPREDNISolone SOD SUCC 125 MG/2 ML VIAL IVP SCH ×5 (02:36→23:54)
[2016-07-16 04:54] LABS: % IMMATURE GRANULYOCYTES 0.2 % (0.0-1.1); ABSOLUTE IMMATURE GRANULOCYTES 0.01 10^3/uL (0.00-0.10); ADD DIFF? NO; ADD MORPH? NO; ADD SCAN? NO; ATYPICAL LYMPHOCYTE FLAG 0 (0-99); FRAGMENT RBC FLAG 0 (0-99); HEMATOCRIT 35.2 % (38.0-47.0); LEFT SHIFT FLG 10 (0-99); LIPEMIA HEMOLYSIS FLAG 80 (0-99); MEAN CELL HEMOGLOBIN 26.1 pg (27.9-34.1); MEAN CELL HEMOGLOBIN CONCENTR. 31.3 g/dL (32.4-36.7); MEAN CELL VOLUME 83.6 fL (81.5-99.8); MEAN PLATELET VOLUME 9.9 fL (8.7-11.7); PLATELET CLUMPS FLAG 0 (0-99); PLATELET COUNT 148 10^3/uL (150-400); RED BLOOD CELL COUNT 4.21 10^6/uL (4.18-5.33); RED CELL DISTRIBUTION WIDTH 16.3 % (11.5-15.2)
[2016-07-16 05:17] LABS: BASE EXCESS -0.5 mEq/L (-2.5-2.5); BICARBONATE 26 mEq/L (22-26); MEASURED OXYGEN SATURATION 95 % (92-95); PCO2 52 mmHg (34-38); PO2 81 mmHg (65-75); TCO2 27 mEq/L (23-27)
[2016-07-16 05:18] LABS: CPAP YES; END TIDAL CO2 38; O2 CONCENTRATIION 40 % (0-100); P/F RATIO 203 RATIO
[2016-07-16 05:19] LABS: PATIENT RATE 12; PRESSURE SUPPORT 7
[2016-07-16 05:29] LABS: ANION GAP 7 mEq/L (8-16); CALCIUM 8.4 mg/dL (8.5-10.4); CARBON DIOXIDE 27 mEq/l (22-31); CHLORIDE 105 mEq/L (97-110); CHOLESTEROL 125 mg/dL (140-220); CHOLESTEROL/HDL RATIO 1.95 RATIO (1.00-4.44); CREATININE 0.8 mg/dL (0.6-1.0); GLOMERULAR FILTRATION RATE > 60; GLUCOSE 102 mg/dL (70-100); HIGH DENSITY LIPOPROTEIN 64 mg/dL (40-85); LOW DENSITY LIPOPROTEIN 45 mg/dL (80-100); NON-HIGH DENSITY LIPOPROTEIN 61 mg/dL (90-129); POTASSIUM 4.6 mEq/L (3.5-5.2); SODIUM 139 mEq/L (134-144); TRIGLYCERIDE 81 mg/dL (35-135); VERY LOW DENSITY LIPOPROTEINS 16 mg/dL (8-25)
[2016-07-16 05:38] LABS: TROPONIN I 0.089 ng/mL (0-0.034)
--- NOTE | 2016-07-16 05:46 | HOSPPROG ---
Hospitalist Progress Note Assessment/Plan: CROSS COVER EVENT NOTE I was paged at approximately 515am because RN noticed bright red blood oozing from patient's L ear. Patient had not experienced any trauma or falls since hospitalization, family deny any falls prior to admission. On my evaluation, although sedated, patient was able to follow simple commands and denied any pain in her ears or changes in her hearing (via translation by family members). VS: 138/100 HR 98 RR 20 O2 Sat 99% on vent TV 400, PEEP 5 Gen: lethargic, but arousable, intubated HEENT: no obvious scalp abrasions or ecchymoses; bright red blood draining from L ear canal, tympanic membrane poorly visualized but appeared ruptured; R external canal without obvious blood, but TM appears consistent with hemotympanum; no oropharyngeal bleeding noted; ETT in place CV: RRR, no murmurs Resp: scattered rhonchi b/l Abd: soft, nontender, nondistended Ext: no edema, pulses 2+ and equal b/l Neuro: awake, follows simple commands, PERRL; moving all extremities equally Labs: see below A/P: PT is 80/F admitted with acute hypoxic respiratory failure due to influenza pneumonia, now requiring mechanical ventilation, who has developed apparently hemotympanum overnight of unclear etiology. CT head obtained and reveals L middle ear fluid, but no obvious intracranial hemorrhage or cranial fracture. Labs reveal normal coags, slightly downtrended platelets. L auditory canal continues to ooze small amount of bright red blood. Will consult ENT. Objective: Vital Signs Temp Pulse Resp BP Pulse Ox 37.1 C 70 20 154/73 H 100 07/16/16 00:00 07/16/16 03:00 07/16/16 05:00 07/16/16 05:00 07/16/16 05:00 Microbiology 07/12/16 22:30 Mycobacterial Smear (GORGE) - Final Sputum, Induced/Suctioned 07/14/16 22:40 Mycobacterial Smear (GORGE) - Final Sputum, Expectorated Laboratory Results 07/16/16 04:30 07/16/16 04:30 07/14/16 07/15/16 07/16/16 05:59 05:59 05:59 Intake Total 3597 Output Total 600 1250 Balance -600 2347 PT 12.9 SEC (12.0-15.0) 07/15/16 15:14 INR 0.98 (0.83-1.16) 07/15/16 15:14 ICD10 Worksheet Patient Problems: Problems Problem Status Onset Pneumonia Acute
[2016-07-16 06:24] LABS: INR 0.96 (0.83-1.16); PROTIME(PATIENT) 12.7 SEC (12.0-15.0)
[2016-07-16 06:25] LABS: APTT 28.4 SEC (23.0-38.0)
[2016-07-16] MEDS: fentaNYL/NACL 100 ML IV SCH ×3 (07:14→23:54)
--- NOTE | 2016-07-16 08:50 | PDINTPN ---
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 Hold for now * VTE proph * Stress ulcer proph Case discussed with nurse, RT, Cardiology and family 40 min of critical care time spent Subjective: Awake Objective: Vital Signs Temp Pulse Resp BP Pulse Ox 37.3 C 75 20 122/58 H 99 07/16/16 08:00 07/16/16 08:00 07/16/16 08:00 07/16/16 08:00 07/16/16 08:00 Microbiology 07/12/16 22:30 Mycobacterial Smear (GORGE) - Final Sputum, Induced/Suctioned 07/14/16 22:40 Mycobacterial Smear (GORGE) - Final Sputum, Expectorated Laboratory Results 07/16/16 04:30 07/16/16 04:30 07/15/16 07/16/16 07/17/16 05:59 05:59 05:59 Intake Total 3597 Output Total 1250 Balance 2347 PT 12.7 SEC (12.0-15.0) 07/16/16 05:45 INR 0.96 (0.83-1.16) 07/16/16 05:45 - Time Spent With Patient Time Spent With Patient: 40 Physical Exam - Physical Exam General Appearance: alert EENT: PERRL/EOMI, ET tube Neck: non-tender, full range of motion, supple, normal inspection Respiratory: wheezing (diffuse), prolonged expiration, No respiratory distress, No accessory muscle use Cardiac/Chest: normal peripheral pulses, regular rate, rhythm, systolic murmur Peripheral Pulses: 2+: carotid (R), carotid (L), femoral (R), femoral (L), dorsalis-pedis (R), dorsalis-pedis (L) Abdomen: normal bowel sounds, non-tender, soft Pelvic Exam: deferred Rectal: deferred Skin: normal color, warm/dry Extremities: normal range of motion, non-tender, normal inspection, normal capillary refill Neuro/Psych: alert ICD10 Worksheet Patient Problems: Problems Problem Status Onset Pneumonia Acute
[2016-07-16] MEDS: OSELTAMIVIR 6 MG/ML UDSYR PO SCH ×2 (08:57→21:22)
[2016-07-16] MEDS: CHLORHEXIDINE GLUCONATE 15 ML UDL PO SCH ×2 (08:57→21:23)
[2016-07-16] MEDS: AZITHROMYCIN IV 500 MG in D5W 250 ML IV SCH (08:57)
[2016-07-16] MEDS: CARVEDILOL 3.125 MG TAB PO SCH ×2 (08:57→18:12)
[2016-07-16] MEDS: ASPIRIN RECTAL 300 MG SUPP PR SCH (08:57)
[2016-07-16] MEDS: FAMOTIDINE 20 MG/NACL 50 ML IV SCH ×2 (08:57→21:23)
[2016-07-16] MEDS: ENOXAPARIN 40 MG/0.4 ML SYR SC SCH (08:57)
[2016-07-16] MEDS ORDERED: ASPIRIN EC 81 MG TAB PO SCH (09:00)
[2016-07-16] MEDS: FUROSEMIDE 20 MG/2 ML VIAL IVP SCH (09:01)
[2016-07-16] MEDS: ALBUTEROL 60 PUFFS/8 GM MDI IH SCH ×4 (09:30→21:11)
--- NOTE | 2016-07-16 10:45 | SOAPPROG ---
SOSCOTTY Progress Note Assessment/Plan: 1. Takotsubo CM - Pt presented with chest pain, respiratory distress, dynamic T wave changes in V1/V2, and segmental wall motion abnormalities on her echocardiogram. She was taken to the cardiac catheterization laboratory for further evaluation. Pt was found to have normal coronary arteries and a takotsubo CM with an EF of 35%. Her LVEDP at time of procedure was mildly to moderately elevated at 20 mmHg. --> Continue coreg --> Consider lisinopril as BP tolerates --> Consider repeat echocardiogram when acute issues resolve 2. Respiratory distress - Pt presented with respiratory distress in the setting of the flu and required intubation. Do not suspect CHF component at this time. CVP is 12 mmHg. O2 requirement have improved. Suspect pt is euvolemic to hypervolemic at this time. --> Continue to follow --> Consider lasix if I > O 3. Elevated troponin - Pt has a mild troponin elevation. Suspect secondary to Takotsubo CM 07/16/16 10:45 Subjective: Pt intubated Responds to questions complains of dry mouth Objective: Vital Signs Temp Pulse Resp BP Pulse Ox 37.4 C 68 20 90/44 L 98 07/16/16 10:00 07/16/16 10:00 07/16/16 10:00 07/16/16 10:00 07/16/16 10:00 Microbiology 07/12/16 22:30 Mycobacterial Smear (GORGE) - Final Sputum, Induced/Suctioned 07/14/16 22:40 Mycobacterial Smear (GORGE) - Final Sputum, Expectorated Laboratory Results 07/16/16 04:30 07/16/16 04:30 07/15/16 07/16/16 07/17/16 05:59 05:59 05:59 Intake Total 3597 Output Total 1250 Balance 2347 PT 12.7 SEC (12.0-15.0) 07/16/16 05:45 INR 0.96 (0.83-1.16) 07/16/16 05:45 Physical Exam - Physical Exam General Appearance: alert, mild distress Respiratory: wheezing Cardiac/Chest: regular rate, rhythm Abdomen: normal bowel sounds, soft Extremities: other (oozing at R femoral access site. Doppler pulses.), No pedal edema Neuro/Psych: alert ICD10 Worksheet Patient Problems: Problems Problem Status Onset Pneumonia Acute
[2016-07-16] MEDS ORDERED: ATROPINE SULFATE 1 MG/10 ML SYR ONE (10:47)
--- NOTE | 2016-07-16 12:53 | ECHO ---
[id number] + + [address] : : [place] [address] : : [phone] + + Adult Echocardiographic Report + ---+ :Name: Alexa ESCALANTE Date: 07/15/2016 02:46 PM : : Hospital Admission Number: [id number] Location: 253: :: 1935 Gender: Female Height: 63 in : :Age: 80 yrs Race: WH Weight: 100 lb : :Reason For Study: Eval LV Fx : : BSA: 1.4 meters2 : :History: Acute SOB, Chest Pain, Abnormal EKG : + ---+ MMode/2D Measurements \T\ Calculations IVSd: 0.87 cm LVIDd: 3.5 cm FS: 13.7 % Ao root diam: LVPWd: 0.95 cm LVIDs: 3.0 cm EDV(Teich): 2.3 cm 50.8 ml ACS: 1.5 cm ESV(Teich): 35.6 ml EF(Teich): 29.9 % LVLd ap4: 6.0 cm SV(MOD-sp4): EDV(MOD-sp4): 11.0 ml 48.0 ml LVLs ap4: 6.1 cm ESV(MOD-sp4): 37.0 ml EF(MOD-sp4): 22.9 % Normal Measurement Values: + + :LVIDd (3.5-5.7cm) IVSd (0.6-1.1cm) LVPWd (0.6-1.1cm) Aortic Root (2.0-3.7cm)Left Atrium (1.5-4.0cm): :LV Vol(d) (76-115ml) LV Vol(s) (29-48ml) Ejec Fraction (50-65%)PV Evans (0.6- 1.2m/s) TV Evans (0.4-1.0m/s) : :MV E Evans (0.8-1.0m/s)MV A Evans (0.3-1.0m/s)LVOT Evans (0.7-1.2m/s) Asc Ao Evans ( 0.9-1.8m/s) : + + Doppler Measurements \T\ Calculations MV E max evans: Ao V2 max: LV V1 max: MR max evans: 85.4 cm/sec 100.4 cm/sec 59.2 cm/sec 320.3 cm/sec Ao max PG: LV V1 max PG: MR max P.0 mmHg 1.4 mmHg 41.0 mmHg PA V2 max: 78.7 cm/sec PA max P.5 mmHg Left Ventricle The left ventricle is normal in size. There is mild concentric left ventricular hypertrophy. Left ventricular systolic function is severely reduced. Ejection Fraction = 15%. There is basilar to mid anteroseptal hypokinesis. There is apical hypokinesis. Right Ventricle The right ventricle is normal in size and function. Atria The left atrial size is normal. Right atrial size is normal. Mitral Valve The mitral valve is normal. There is no mitral valve stenosis. There is mild mitral regurgitation. Aortic Valve The aortic valve is trileaflet. There is no aortic stenosis. There is no aortic insufficiency. Pulmonic Valve The pulmonic valve is normal in structure and function. Great Vessels The aortic root is normal size. Pericardium/Pleural Small pericardial effusion. Conclusion A complete two-dimensional transthoracic echocardiogram was performed (2D, M-mode, Doppler and color flow Doppler). Limited study under emergent situation Mild concentric left ventricular hypertrophy. Left ventricular systolic function is severely reduced. Ejection Fraction = 15%. Basilar to mid anteroseptal hypokinesis, apical hypokinesis. Mild mitral regurgitation. Small pericardial effusion. Final Reading Physician: Fermin Perez signed on 07/16/2016 12:51 PM Ordering Physician: Alfredo Adair Performed By: Mario Johns, BLADIMIRCS
--- NOTE | 2016-07-16 15:22 | HOSPPROG ---
Hospitalist Progress Note Assessment/Plan: # acute hypoxic and hypercapnic respiratory failure (multifactorial) influenza/ possible bacterial pneumonia/pulmonary edema - cont mechanical ventilation per pulm -cont tamiflu/axithro/ctx # acute reactive airway exacerbation: evidenced by diffuse wheezes, tachypnea 2/ 2 PNA - cont on prednisone and scheduled duonebs #luis CM -cards consult reviewed and appreciated #bilat hemotympanum suspect TM injury/perf from barotrauma in the setting of positive pressure ventilation -case discusses with ENT who recommends supportive care and outpatient followup to insure TMs are healing # thoracic compression fracture: noted incidentally on imaging, not symptomatic , defer to pcp starting tx for osteoporosis. Vitamin D levels normal. # severe protein calorie malnutrition: with BMI of 17, cachectic on exam, appetite is poor. Dietary consulted. diet. regular w/ supplements code. full ppx. high risk, lovenox 40 pt is high risk Subjective: pt seen with family in room. pt denies pain. seems comfortable on vent Objective: Vital Signs Temp Pulse Resp BP Pulse Ox 37.3 C 68 20 100/57 L 99 07/16/16 14:00 07/16/16 14:00 07/16/16 14:00 07/16/16 14:00 07/16/16 14:00 Microbiology 07/12/16 22:30 Mycobacterial Smear (GORGE) - Final Sputum, Induced/Suctioned 07/14/16 22:40 Mycobacterial Smear (GORGE) - Final Sputum, Expectorated Laboratory Results 07/16/16 04:30 07/16/16 04:30 07/15/16 07/16/16 07/17/16 05:59 05:59 05:59 Intake Total 3597 Output Total 1250 Balance 2347 PT 12.7 SEC (12.0-15.0) 07/16/16 05:45 INR 0.96 (0.83-1.16) 07/16/16 05:45 - Physical Exam Constitutional: no apparent distress, appears nourished, not in pain Ears, Nose, Mouth, Throat: other (blood in bilat EAC no purulent drainage) Cardiovascular: regular rate and rhythym, no murmur, rub, or gallop Respiratory: no respiratory distress, no rales or rhonchi, clear to auscultation , expiratory wheeze, other (intubated) Skin: no rashes or abrasions, no fluctuance, no induration Neurologic: CN II-XII Intact, No weakness, No numbness, No facial droop ICD10 Worksheet Patient Problems: Problems Problem Status Onset Pneumonia Acute
--- NOTE | 2016-07-16 16:52 | PCMIDPN ---
Assessment/Plan: Assessment/Plan: * Influenza pneumonia with possible superimposed community-acquired pneumonia: Now has completed 5 days of ceftriaxone and azithromycin and continues on Tamiflu. Will discontinue ceftriaxone and azithromycin at this point and continue Tamiflu. Remains intubated primarily due to bronchospasm. Continue droplet precautions for influenza. * Right upper lobe infiltrate: AFB smear x3 negative and NAAT for mycobacterium tuberculosis on sputum sample also negative. Airborne isolation has been discontinued. 07/16/16 16:48 07/16/16 16:51 Subjective: Intubated and noted to have wheezing. Objective: Vital Signs Temp Pulse Resp BP Pulse Ox 37.4 C 65 20 103/49 L 98 07/16/16 15:00 07/16/16 16:25 07/16/16 16:25 07/16/16 15:00 07/16/16 16:25 Microbiology 07/12/16 22:30 Mycobacterial Smear (GOREG) - Final Sputum, Induced/Suctioned 07/14/16 22:40 Mycobacterial Smear (GORGE) - Final Sputum, Expectorated Laboratory Results 07/16/16 04:30 07/16/16 04:30 07/15/16 07/16/16 07/17/16 05:59 05:59 05:59 Intake Total 3597 Output Total 1250 Balance 2347 Ceftriaxone # 5 Azithromycin # 5 Tamiflu # 4 Blood cultures x2 no growth - Physical Exam General Appearance: other (Intubated, opens eyes to name) EENT: No scleral icterus Respiratory: wheezing (Diffuse and bilateral) Cardiac/Chest: regular rate, rhythm Abdomen: non-tender, No distended ICD10 Worksheet Patient Problems: Problems Problem Status Onset Pneumonia Acute
[2016-07-17 05:05] LABS: % IMMATURE GRANULYOCYTES 0.6 % (0.0-1.1); ABSOLUTE IMMATURE GRANULOCYTES 0.04 10^3/uL (0.00-0.10); ADD DIFF? NO; ADD MORPH? NO; ADD SCAN? NO; ATYPICAL LYMPHOCYTE FLAG 0 (0-99); FRAGMENT RBC FLAG 0 (0-99); HEMOGLOBIN 11.3 g/dL (12.6-16.3); LEFT SHIFT FLG 0 (0-99); LIPEMIA HEMOLYSIS FLAG 80 (0-99); MEAN CELL HEMOGLOBIN 25.8 pg (27.9-34.1); MEAN CELL HEMOGLOBIN CONCENTR. 31.4 g/dL (32.4-36.7); MEAN CELL VOLUME 82.2 fL (81.5-99.8); MEAN PLATELET VOLUME 10.9 fL (8.7-11.7); PLATELET CLUMPS FLAG 0 (0-99); PLATELET COUNT 166 10^3/uL (150-400); RED BLOOD CELL COUNT 4.38 10^6/uL (4.18-5.33); RED CELL DISTRIBUTION WIDTH 16.4 % (11.5-15.2)
[2016-07-17] MEDS: ALBUTEROL 60 PUFFS/8 GM MDI IH SCH ×6 (05:11→21:06)
[2016-07-17] MEDS: methylPREDNISolone SOD SUCC 125 MG/2 ML VIAL IVP SCH ×3 (05:18→17:37)
[2016-07-17 05:25] LABS: ANION GAP 5 mEq/L (8-16); CALCIUM 8.8 mg/dL (8.5-10.4); CARBON DIOXIDE 25 mEq/l (22-31); CHLORIDE 107 mEq/L (97-110); CREATININE 1.1 mg/dL (0.6-1.0); GLOMERULAR FILTRATION RATE 48; GLUCOSE 89 mg/dL (70-100); POTASSIUM 4.7 mEq/L (3.5-5.2); SODIUM 137 mEq/L (134-144)
[2016-07-17] MEDS: OSELTAMIVIR 6 MG/ML UDSYR PO SCH ×2 (08:37→21:28)
[2016-07-17] MEDS: FUROSEMIDE 20 MG/2 ML VIAL IVP SCH (08:37)
[2016-07-17] MEDS: ASPIRIN RECTAL 300 MG SUPP PR SCH (08:37)
[2016-07-17] MEDS: FAMOTIDINE 20 MG/NACL 50 ML IV SCH ×2 (08:37→21:28)
[2016-07-17] MEDS: CHLORHEXIDINE GLUCONATE 15 ML UDL PO SCH ×2 (08:37→21:28)
[2016-07-17] MEDS: CARVEDILOL 3.125 MG TAB PO SCH ×2 (08:38→18:22)
--- NOTE | 2016-07-17 09:00 | PDINTPN ---
P[employer] Progress Note Assessment/Plan: Assessment/Plan: * Hypercarbic Resp Failure-stable on vent. Increased mucus plugs -bronch today * Acute Asthma-still wheezing -continue steroids, nebs * Influenza * Pna-ruled out for TB -cont abx * Takotsubo cardiomyopathy-stable * Sedation-adequate * Nutrition-none yet. Hold for now * VTE proph * Stress ulcer proph Case discussed with nurse, RT, Cardiology and family 35 min of critical care time spent Subjective: sedated, but arousable Objective: Vital Signs Temp Pulse Resp BP Pulse Ox 37.4 C 89 20 116/54 L 92 07/17/16 05:00 07/17/16 07:00 07/17/16 07:00 07/17/16 07:00 07/17/16 07:00 Laboratory Results 07/17/16 04:55 07/17/16 04:55 07/16/16 07/17/16 07/18/16 05:59 05:59 05:59 Intake Total 3597 682 Output Total 1250 850 Balance 2347 -168 PT 12.7 SEC (12.0-15.0) 07/16/16 05:45 INR 0.96 (0.83-1.16) 07/16/16 05:45 CXR reviewed by myself today. ETT okay. Improved - Time Spent With Patient Time Spent With Patient: 35 Physical Exam - Physical Exam General Appearance: WD/WN, other (sedated) EENT: PERRL/EOMI, normal ENT inspection, ET tube Neck: non-tender, full range of motion, supple Respiratory: wheezing, No respiratory distress, No accessory muscle use Cardiac/Chest: normal peripheral pulses, regular rate, rhythm, systolic murmur Peripheral Pulses: 2+: carotid (R), carotid (L), femoral (R), femoral (L), dorsalis-pedis (R), dorsalis-pedis (L) Abdomen: normal bowel sounds, non-tender, soft Pelvic Exam: deferred Rectal: deferred Skin: normal color Extremities: normal range of motion, non-tender, normal inspection, normal capillary refill ICD10 Worksheet Patient Problems: Problems Problem Status Onset Pneumonia Acute
--- NOTE | 2016-07-17 09:19 | PDCARPN ---
Cardiology Progress Note Chief Complaint: Patient does not offer any complaints at this time, she is intubated but alert, family is at bedside. Assessment/Plan: Assessment: 1. Flu pneumonia with the superimposed bacterial pneumonia 2. 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 Will wait for 48 hours before starting lisinopril 07/17/16 09:18 Time Spent With Patient: 15 min Objective: Vital Signs (8 Hrs) Temp Pulse Resp BP Pulse Ox 07/17/16 07:00 89 20 116/54 L 92 07/17/16 06:00 73 19 139/71 H 100 07/17/16 05:10 72 20 96 07/17/16 05:00 37.4 C 88 18 144/83 H 99 07/17/16 04:00 86 17 117/52 L 96 07/17/16 03:00 72 93/45 L 96 07/17/16 02:00 71 17 91/53 L 96 Intake/Output (24 Hrs) 07/15/16 07/16/16 07/17/16 11:59 11:59 11:59 Intake Total 2347 1250 682 Output Total 1250 850 Balance 2347 0 -168 Intake: Oral (ml) 0 IV Intake (ml) 1080 540 IV Infused (ml) 2347 170 142 Ns 1,000 ml @ 75 mls/hr 2347 IV CONT [facility] Rx#: [id number] Propofol/Emulsion 100 ml 20 @ Per Protocol IV CONT [facility] Rx#:[id number] fentaNYL/NACL 100 ml @ 142 Per Protocol IV CONT [facility] Rx#:[id number] Output: Urine (ml) 1250 850 Catheter 1250 850 Other: Intake Quantity Yes Sufficient Number of Voids 1 Result Diagrams: 07/17/16 04:55 07/17/16 04:55 Cardiac Labs: Cardiac Lab Results (72 Hrs) 07/16/16 07/15/16 07/15/16 04:30 15:10 09:50 Troponin I 0.089 H 0.083 H Cancelled 07/15/16 09:50 Troponin I 0.014 Telemetry: Sinus rhythm ICD10 Worksheet Patient Problems: Problems Problem Status Onset Pneumonia Acute
[2016-07-17] MEDS: AZITHROMYCIN IV 500 MG in D5W 250 ML IV SCH (09:38)
[2016-07-17] MEDS ORDERED: LIDOCAINE 2% JELLY 5 ML TUBE TP ONE (10:57)
[2016-07-17] MEDS ORDERED: LIDOCAINE 1% 30 ML SDV MISC ONE (10:57)
[2016-07-17] MEDS ORDERED: MIDAZOLAM 2 MG/2 ML VIAL ONE (13:39)
--- NOTE | 2016-07-17 14:21 | HOSPPROG ---
Hospitalist Progress Note Assessment/Plan: # acute hypoxic and hypercapnic respiratory failure (multifactorial) influenza/ possible bacterial pneumonia/pulmonary edema - cont mechanical ventilation per pulm and plan for bronch today and extubation per Pulm -cont tamiflu to complete 5 days of treatment -ctx and azithro dc'ed yesterday by ID # acute reactive airway exacerbation: - cont on prednisone and scheduled duonebs #takasubo CM with EF of 35% -cards consult reviewed and appreciated -diuretics stopped today by cards -restart benny once able to tolerate #prerenal azotemia -hold diuretics #bilat hemotympanum suspect TM injury/perf from barotrauma in the setting of positive pressure ventilation -case discusses with ENT who recommends supportive care and outpatient followup to insure TMs are healing # thoracic compression fracture: noted incidentally on imaging, not symptomatic , defer to pcp starting tx for osteoporosis. Vitamin D levels normal. # severe protein calorie malnutrition: with BMI of 17, cachectic on exam, appetite is poor. Dietary consulted. diet. regular w/ supplements code. full ppx. high risk, lovenox 40 pt is high risk Subjective: intubated and sedated Objective: Vital Signs Temp Pulse Resp BP Pulse Ox 37.3 C 65 16 107/55 L 100 07/17/16 12:00 07/17/16 14:00 07/17/16 14:00 07/17/16 14:00 07/17/16 14:00 Laboratory Results 07/17/16 04:55 07/17/16 04:55 07/16/16 07/17/16 07/18/16 05:59 05:59 05:59 Intake Total 3597 682 Output Total 1250 850 Balance 2347 -168 PT 12.7 SEC (12.0-15.0) 07/16/16 05:45 INR 0.96 (0.83-1.16) 07/16/16 05:45 - Physical Exam Constitutional: no apparent distress Ears, Nose, Mouth, Throat: other (no obvous bleeding) Cardiovascular: regular rate and rhythym, no murmur, rub, or gallop, No JVD, No edema Respiratory: no respiratory distress, reduced air movement, other (intubated), No expiratory wheeze, No inspiratory crackles Gastrointestinal: normoactive bowel sounds, soft, non-tender abdomen, no palpable masses, No guarding, No rebound Skin: no rashes or abrasions, no fluctuance, no induration ICD10 Worksheet Patient Problems: Problems Problem Status Onset Pneumonia Acute
[2016-07-17] MEDS ORDERED: MIDAZOLAM 2 MG/2 ML VIAL IVP ONE (15:30)
--- NOTE | 2016-07-17 17:39 | PCMIDPN ---
Assessment/Plan: Assessment/Plan: * Influenza pneumonia with possible superimposed community-acquired pneumonia: Now has completed 6 days of ceftriaxone and azithromycin and continues on Tamiflu. Discontinue ceftriaxone azithromycin. Completed 5 days of Tamiflu. Continue supportive care for respiratory failure. * Right upper lobe infiltrate: AFB smear x3 negative and NAAT for mycobacterium tuberculosis on sputum sample also negative. Airborne isolation has been discontinued. AFB pending over time in lab. 07/17/16 17:36 Subjective: Patient remains intubated. Opens eyes to name. Bronchoscopy done today for mucus plugs. Objective: Vital Signs Temp Pulse Resp BP Pulse Ox 37.1 C 66 18 119/52 L 99 07/17/16 16:00 07/17/16 17:00 07/17/16 17:00 07/17/16 17:00 07/17/16 17:00 Laboratory Results 07/17/16 04:55 07/17/16 04:55 07/16/16 07/17/16 07/18/16 05:59 05:59 05:59 Intake Total 3597 682 Output Total 1250 850 Balance 2347 -168 Status post ceftriaxone/azithromycin x6 days Status post Tamiflu x5 days AFB smear x3 negative Blood cultures x2 negative Sputum sample pending today Chest x-ray without focal pneumonia - Physical Exam General Appearance: non-toxic, other (Intubated, opens eyes to name) EENT: No scleral icterus Respiratory: wheezing (Bilateral inspiratory) Cardiac/Chest: regular rate, rhythm Abdomen: non-tender, No distended ICD10 Worksheet Patient Problems: Problems Problem Status Onset Pneumonia Acute
--- NOTE | 2016-07-17 20:15 | GCON ---
[f rep st] CONSULTATION DATE OF CONSULTATION: 07/17/2016 REASON FOR CONSULTATION: Hemotympanum. HISTORY OF PRESENT ILLNESS: The patient is intubated and sedated. HISTORY OF PRESENT ILLNESS: Provided by the caring physician. The patient has been in the hospital for pneumonia, and had respiratory failure. She was on BiPAP, and then she was coded and received positive pressure ventilation, was intubated, and has been on the ventilator since. During her code and after intubation, patient was found to have blood from bilateral ear canals. Patient is curren tly intubated and sedated, so history on hearing loss not able to be provided. I spoke with her son , who describes the patient does not have any history of any ear surgeries or ear problems or hearin g loss. PHYSICAL EXAM: GENERAL: Patient is intubated and sedated. HEENT: The patient with apparently symmetric facial movement. Left ear canal with dried blood and what appears to be an anterior perforation possibly seen. No otorrhea seen. On the left side, bushra lar exam but doubt perforation. TM barely visible because of the dry blood in the ear canal. There is no edema or swelling of either ear canal. ASSESSMENT AND PLAN: 1. This is a 80-year-old, female, with barotrauma to bilateral ears. The plan is to ke nue with dry ear precautions, which is described in detail to her son, including using the either ea r plugs or cotton balls covered in Vaseline until patient is further assessed as an outpatient. 2. The patient should start Ciprodex drops 4 drops in each ear twice daily to help the dry blood to liquefy and come out. This could be done for 1 week. There is no evidence of infection, and the p atient is covered with antibiotics for her pneumonia, which should be adequate. Once the patient is discharged and stabilized, at some point, she should be seen as an outpatient by ENT and have a hea ring test for further evaluation of resolution of the tympanic membrane perforations and the hemotym panum to confirm no permanent hearing loss. /[id number]/MODL
--- NOTE | 2016-07-17 20:36 | GPN ---
[f rep st] PROCEDURE NOTE PROCEDURE PERFORMED: Fiberoptic bronchoscopy. INDICATION: Mucus plugging and asthma. ANESTHESIA: She was given 2 mg of Versed IV. She is currently on a fentanyl drip. PROCEDURE: Procedure was performed in the intensive care unit with continuous pulse ox, EKG and blo od pressure monitoring. Please note, patient is in a negative-pressure room. She is on mechanical ventilation, which is by definition a closed system. N95 masks were used by all throughout the proc edure. Bronchoscope was entered through a #8 endotracheal tube. Trachea and corby were visualized and malia wed a modest amount of mucous plugging that was therapeutically aspirated. Bronchoscope was in the right lung. Right upper lobe, right middle lobe, right lower lobe, including subsegments, were visua lized, and again showed a modest amounts of mucous plugging that were therapeutically aspirated. Br onchoscope was in the left lung. Left upper lobe, lingula, left lower lobe including subsegments we re subsequently visualized and again showed modest amounts of mucus plugging that were therapeutical ly aspirated. Bronchoalveolar lavage taken from the right lower lobe. This sent for C and S. Ther e were no apparent complications. /[id number]/MODL
[2016-07-17] MEDS: CIPROFLOXACIN HCL/DEXAMETH 7.5 ML OTIC DROPS EACHEAR SCH (21:28)
[2016-07-18] MEDS: methylPREDNISolone SOD SUCC 125 MG/2 ML VIAL IVP SCH ×4 (00:10→18:11)
[2016-07-18] MEDS: ALBUTEROL 60 PUFFS/8 GM MDI IH SCH ×4 (00:14→14:04)
[2016-07-18] MEDS: fentaNYL/NACL 100 ML IV SCH (00:58)
[2016-07-18 04:51] LABS: % IMMATURE GRANULYOCYTES 0.6 % (0.0-1.1); ABSOLUTE IMMATURE GRANULOCYTES 0.04 10^3/uL (0.00-0.10); ADD DIFF? NO; ADD MORPH? NO; ADD SCAN? NO; ATYPICAL LYMPHOCYTE FLAG 0 (0-99); FRAGMENT RBC FLAG 0 (0-99); HEMATOCRIT 36.7 % (38.0-47.0); HEMOGLOBIN 11.4 g/dL (12.6-16.3); LEFT SHIFT FLG 10 (0-99); LIPEMIA HEMOLYSIS FLAG 80 (0-99); MEAN CELL HEMOGLOBIN 25.6 pg (27.9-34.1); MEAN CELL HEMOGLOBIN CONCENTR. 31.1 g/dL (32.4-36.7); MEAN CELL VOLUME 82.5 fL (81.5-99.8); MEAN PLATELET VOLUME 10.1 fL (8.7-11.7); PLATELET CLUMPS FLAG 10 (0-99); PLATELET COUNT 179 10^3/uL (150-400); RED BLOOD CELL COUNT 4.45 10^6/uL (4.18-5.33); RED CELL DISTRIBUTION WIDTH 16.4 % (11.5-15.2)
--- NOTE | 2016-07-18 05:13 | PDINTPN ---
Vice Chairman Progress Note Assessment/Plan: Assessment/Plan: * Hypercarbic Resp Failure-stable on vent. -will assess for extubation this am -aggressive pulmonary toilet -add mucomyst * Acute Asthma-still wheezing -continue steroids, nebs * Influenza * Pna-ruled out for TB -cont abx * Takotsubo cardiomyopathy-stable * Sedation-adequate * Nutrition-none yet. Hold for now. Will start today if not able to extubate * VTE proph * Stress ulcer proph Case discussed with nurse, & RT 35 min of critical care time spent Subjective: Sedated but arousable Objective: Vital Signs Temp Pulse Resp BP Pulse Ox 36.9 C 78 17 127/57 H 98 07/18/16 04:00 07/18/16 04:00 07/18/16 04:00 07/18/16 04:00 07/18/16 04:00 Microbiology 07/17/16 15:30 - Final Sputum, Induced/Suctioned Laboratory Results 07/18/16 04:42 07/16/16 07/17/16 07/18/16 05:59 05:59 05:59 Intake Total 3597 682 448 Output Total 1250 850 650 Balance 2347 -168 -202 PT 12.7 SEC (12.0-15.0) 07/16/16 05:45 INR 0.96 (0.83-1.16) 07/16/16 05:45 - Time Spent With Patient Time Spent With Patient: 35 Physical Exam - Physical Exam General Appearance: other (sedated), No alert EENT: PERRL/EOMI, ET tube Neck: non-tender, full range of motion, supple, normal inspection Respiratory: rhonchi (few), wheezing, No respiratory distress, No accessory muscle use Cardiac/Chest: normal peripheral pulses, regular rate, rhythm, systolic murmur Peripheral Pulses: 2+: carotid (R), carotid (L), femoral (R), femoral (L), dorsalis-pedis (R), dorsalis-pedis (L) Abdomen: normal bowel sounds, non-tender, soft Pelvic Exam: deferred Rectal: deferred Skin: normal color, warm/dry Extremities: normal range of motion, non-tender, normal inspection, normal capillary refill ICD10 Worksheet Patient Problems: Problems Problem Status Onset Pneumonia Acute
[2016-07-18 05:14] LABS: ANION GAP 5 mEq/L (8-16); CALCIUM 9.1 mg/dL (8.5-10.4); CARBON DIOXIDE 27 mEq/l (22-31); CHLORIDE 106 mEq/L (97-110); CREATININE 1.1 mg/dL (0.6-1.0); GLOMERULAR FILTRATION RATE 48; GLUCOSE 109 mg/dL (70-100); POTASSIUM 4.7 mEq/L (3.5-5.2); SODIUM 138 mEq/L (134-144)
[2016-07-18] MEDS: ACETYLCYSTEINE 10% 30 ML VIAL IH SCH ×4 (06:22→21:13)
[2016-07-18] MEDS: FAMOTIDINE 20 MG/NACL 50 ML IV SCH ×2 (08:14→21:26)
[2016-07-18] MEDS: ASPIRIN RECTAL 300 MG SUPP PR SCH (08:14)
[2016-07-18] MEDS: CHLORHEXIDINE GLUCONATE 15 ML UDL PO SCH (08:14)
[2016-07-18] MEDS: ENOXAPARIN 40 MG/0.4 ML SYR SC SCH (08:14)
[2016-07-18] MEDS: CARVEDILOL 3.125 MG TAB PO SCH ×2 (08:14→18:11)
[2016-07-18] MEDS: CIPROFLOXACIN HCL/DEXAMETH 7.5 ML OTIC DROPS EACHEAR SCH ×2 (08:15→21:26)
[2016-07-18] MEDS ORDERED: NS 500 ML IV ONE (09:56)
[2016-07-18] MEDS ORDERED: NS 1,000 ML IV SCH (10:00)
--- NOTE | 2016-07-18 10:06 | PDCARPN ---
Cardiology Progress Note Chief Complaint: Takotsubo cardiomyopathy Assessment/Plan: Assessment: 1. Flu pneumonia with the superimposed bacterial pneumonia 2. 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 Patient is not receiving feeds/hydration. Have discussed with Dr. Richard Grove who is going to write for intravenous saline, monitor closely given Low ejection fraction. - continue beta-blockers at this time. Will not increase dose given prerenal azotemia. Will also hold off on starting JEAN inhibitors because of prerenal azotemia. Subjective: Intubated, plan on? Extubation today, family at bedside Reviewed/Discussed With: other (Partnership Marketing Manager) Time Spent With Patient: 15 minutes Objective: Vital Signs (8 Hrs) Temp Pulse Resp BP Pulse Ox 07/18/16 09:00 36.9 C 78 16 113/68 99 07/18/16 08:14 68 113/58 L 07/18/16 08:00 37 C 67 16 113/58 L 100 07/18/16 07:00 67 28 H 128/62 H 100 07/18/16 06:00 37 C 68 16 128/62 H 100 07/18/16 05:00 36.6 C 75 18 137/64 H 100 07/18/16 04:50 63 16 99 07/18/16 04:00 36.9 C 78 17 127/57 H 98 Intake/Output (24 Hrs) 07/16/16 07/17/16 07/18/16 11:59 11:59 11:59 Intake Total 1250 682 500 Output Total 5017 699 3428 Balance 0 -168 -510 Intake: Oral (ml) 0 IV Intake (ml) 1080 540 300 IV Infused (ml) 170 142 100 Propofol/Emulsion 100 ml 20 @ Per Protocol IV CONT [facility] Rx#:[id number] fentaNYL/NACL 100 ml @ 142 100 Per Protocol IV CONT [facility] Rx#:[id number] Tube Flush (ml) 100 Output: Urine (ml) 4602 505 1229 Catheter 2909 141 0086 Other: Weight 45.9 kg Number of Voids 1 Result Diagrams: 07/18/16 04:42 07/18/16 04:42 Cardiac Labs: Cardiac Lab Results (72 Hrs) 07/16/16 07/15/16 07/15/16 04:30 15:10 09:50 Troponin I 0.089 H 0.083 H Cancelled 07/15/16 09:50 Troponin I 0.014 Telemetry: Sinus rhythm - Physical Exam Cardiovascular: regular rate and rhythm ICD10 Worksheet Patient Problems: Problems Problem Status Onset Pneumonia Acute
[2016-07-18 10:31] LABS: BASE EXCESS -0.8 mEq/L (-2.5-2.5); BICARBONATE 25 mEq/L (22-26); MEASURED OXYGEN SATURATION 97 % (92-95); PCO2 49 mmHg (34-38); PO2 101 mmHg (65-75); TCO2 27 mEq/L (23-27)
[2016-07-18 10:32] LABS: CPAP YES; END TIDAL CO2 36; O2 CONCENTRATIION 40 % (0-100); P/F RATIO 253 RATIO; PATIENT RATE 13; PRESSURE SUPPORT 7
--- NOTE | 2016-07-18 13:38 | PCMIDPN ---
Assessment/Plan: Assessment/Plan: * Influenza pneumonia with possible superimposed community-acquired pneumonia: Completed 6 days of ceftriaxone and azithromycin and 5 days of Tamiflu. BAL specimen shows growth of Stenotrophomonas - suspect represents colonization given ability to extubate and x-ray without focal colonization. Do not think needs antibiotic therapy targeting Stenotrophomonas currently. * Right upper lobe infiltrate: AFB smear x3 negative and NAAT for mycobacterium tuberculosis on sputum sample also negative. Airborne isolation has been discontinued. AFB pending over time in lab. Will sign off. Please call questions or changes in clinical condition. 07/18/16 13:34 Subjective: Patient feels much better. Extubated today. Objective: Vital Signs Temp Pulse Resp BP Pulse Ox 36.7 C 83 20 138/66 H 99 07/18/16 12:00 07/18/16 12:00 07/18/16 12:00 07/18/16 12:00 07/18/16 12:00 Microbiology 07/17/16 15:30 - Final Sputum, Induced/Suctioned Laboratory Results 07/18/16 04:42 07/18/16 04:42 07/17/16 07/18/16 07/19/16 05:59 05:59 05:59 Intake Total 682 500 500 Output Total 850 950 220 Balance -168 -450 280 No antibiotic therapy: Status post 6 days of ceftriaxone and azithromycin Status post 5 days of Tamiflu BAL specimen with growth of Stenotrophomonas T spot negative - Physical Exam General Appearance: alert, no apparent distress EENT: pharynx normal, No scleral icterus Respiratory: wheezing (Bilateral inspiratory and expiratory) Cardiac/Chest: regular rate, rhythm ICD10 Worksheet Patient Problems: Problems Problem Status Onset Pneumonia Acute
--- NOTE | 2016-07-18 14:24 | HOSPPROG ---
Hospitalist Progress Note Assessment/Plan: # acute hypoxic and hypercapnic respiratory failure (multifactorial) influenza/ possible bacterial pneumonia/pulmonary edema - cont mechanical ventilation per pulm and plan for extubation later today -s/p treatment with tamiflu/ctx/azithro ID has signed off # acute reactive airway exacerbation: - cont on prednisone and scheduled duonebs #nenitaubtessa CM with EF of 35% -cards consult reviewed and appreciated -diuretics stopped today by cards -restart benny once able to tolerate #prerenal azotemia -cont to hold diuretics -ivf started by cards #bilat hemotympanum suspect TM injury/perf from barotrauma in the setting of positive pressure ventilation -ENT recommends ciprodex ear gtts and outpt followup with audiogram # thoracic compression fracture: noted incidentally on imaging, not symptomatic , defer to pcp starting tx for osteoporosis. Vitamin D levels normal. # severe protein calorie malnutrition: with BMI of 17, cachectic on exam, appetite is poor. Dietary consulted. diet. regular w/ supplements code. full ppx. high risk, lovenox 40 pt is high risk Subjective: intunbated. no acute issues Objective: Vital Signs Temp Pulse Resp BP Pulse Ox 36.6 C 88 20 155/71 H 98 07/18/16 14:00 07/18/16 14:10 07/18/16 14:10 07/18/16 14:00 07/18/16 14:10 Microbiology 07/17/16 15:30 - Final Sputum, Induced/Suctioned Laboratory Results 07/18/16 04:42 07/18/16 04:42 07/17/16 07/18/16 07/19/16 05:59 05:59 05:59 Intake Total 682 500 500 Output Total 850 950 270 Balance -168 -450 230 PT 12.7 SEC (12.0-15.0) 07/16/16 05:45 INR 0.96 (0.83-1.16) 07/16/16 05:45 - Physical Exam Ears, Nose, Mouth, Throat: other (et tube inplace) Cardiovascular: regular rate and rhythym, no murmur, rub, or gallop, No edema Respiratory: no respiratory distress, no rales or rhonchi, clear to auscultation , expiratory wheeze Gastrointestinal: normoactive bowel sounds, soft, non-tender abdomen, no palpable masses Genitourinary: no bladder fullness, no bladder tenderness, no renal bruits Skin: no rashes or abrasions, no fluctuance, no induration ICD10 Worksheet Patient Problems: Problems Problem Status Onset Pneumonia Acute
[2016-07-18] MEDS: ALBUTEROL 3 ML DEYVIAL IH SCH ×2 (18:16→21:12)
[2016-07-19] MEDS: methylPREDNISolone SOD SUCC 125 MG/2 ML VIAL IVP SCH ×3 (00:07→13:32)
[2016-07-19 06:27] LABS: HEMATOCRIT 37.5 % (38.0-47.0); HEMOGLOBIN 11.8 g/dL (12.6-16.3); MEAN CELL HEMOGLOBIN 26.3 pg (27.9-34.1); MEAN CELL HEMOGLOBIN CONCENTR. 31.5 g/dL (32.4-36.7); MEAN CELL VOLUME 83.5 fL (81.5-99.8); RED BLOOD CELL COUNT 4.49 10^6/uL (4.18-5.33)
[2016-07-19] MEDS: ALBUTEROL 3 ML DEYVIAL IH SCH ×4 (06:32→20:16)
[2016-07-19] MEDS: ACETYLCYSTEINE 10% 30 ML VIAL IH SCH ×3 (06:32→16:22)
[2016-07-19 06:42] LABS: ANION GAP 5 mEq/L (8-16); CALCIUM 8.7 mg/dL (8.5-10.4); CARBON DIOXIDE 26 mEq/l (22-31); CHLORIDE 112 mEq/L (97-110); CREATININE 0.8 mg/dL (0.6-1.0); GLOMERULAR FILTRATION RATE > 60; GLUCOSE 123 mg/dL (70-100); POTASSIUM 4.6 mEq/L (3.5-5.2); SODIUM 143 mEq/L (134-144)
[2016-07-19] MEDS: CARVEDILOL 3.125 MG TAB PO SCH ×2 (08:15→18:35)
[2016-07-19] MEDS: FAMOTIDINE 20 MG/NACL 50 ML IV SCH (08:20)
[2016-07-19] MEDS: ENOXAPARIN 40 MG/0.4 ML SYR SC SCH (08:20)
[2016-07-19] MEDS: CIPROFLOXACIN HCL/DEXAMETH 7.5 ML OTIC DROPS EACHEAR SCH ×2 (08:21→20:25)
[2016-07-19] MEDS: ASPIRIN RECTAL 300 MG SUPP PR SCH ×2 (08:32→08:35)
--- NOTE | 2016-07-19 12:33 | PDCARPN ---
Cardiology Progress Note Chief Complaint: hypoxic respiratory, flu A, pna, Takotsubo CM, CHF Assessment/Plan: Assessment: 80-y/o F with PMH asthma, admitted on 07/12/16 with acutely worsening dyspnea starting 5 days HR ADVISOR. On 07/15, she developed markedly worsening hypoxia, chest pain, and dyspnea, was found to be hypercarbic on ABG. Echo showed depressed EF and WMA. Found to have normal cors and EF 35% with WMA c/w Takotsubo CM. #. Takotsubo CM has been on pureed diet with no fluids and developed EMILEE started on IVF yesterday lungs diminished with crackles and coarse breath sounds BP appears like it will tolerate addition of ACEI and so this will be initiated today #. Influenza A with bacterial pna: per hot saw operator and hospitalist #. hypoxic respiratory failure: O2 needs at 4 lpm #. aspiration: currently on purees 07/19/16 12:28 Subjective: Reports feeling well. Some mild dyspnea. Not coughing and denies f/c. Objective: Vital Signs (8 Hrs) Temp Pulse Resp BP Pulse Ox 07/19/16 11:21 84 18 94 07/19/16 10:00 82 20 152/86 H 95 07/19/16 08:15 89 154/63 H 07/19/16 08:00 99.1 F 78 15 162/68 H 94 07/19/16 06:32 84 18 96 07/19/16 06:00 83 20 149/68 H 97 Intake/Output (24 Hrs) 07/18/16 07/19/16 07/20/16 05:59 05:59 05:59 Intake Total 500 2496 Output Total 950 910 Balance -450 1586 Intake: IV Intake (ml) 300 1170 IV Infused (ml) 100 1326 Ns 1,000 ml @ 100 mls/hr 826 IV CONT [facility] Rx#: [id number] Ns 500 ml @ Wide Open IV 500 ONCE ONE Rx#:[id number] fentaNYL/NACL 100 ml @ 100 Per Protocol IV CONT [facility] Rx#:[id number] Tube Flush (ml) 100 Output: Urine (ml) 950 910 Catheter 950 910 Other: Weight 45.9 kg Number of Voids Toilet 1 Result Diagrams: 07/19/16 06:20 07/19/16 06:20 Telemetry: SR - Physical Exam Constitutional: no apparent distress, cachectic Eyes: PERRL Ears, Nose, Mouth, Throat: moist mucous membranes Cardiovascular: regular rate and rhythm, no murmurs Respiratory: reduced air movement, inspiratory crackles, bronchial breath sounds Gastrointestinal: normoactive bowel sounds, no tenderness Genitourinary: no suprapubic tenderness, No wilkins in urethra Skin: no rashes, no abrasions Psychiatric: cooperative, interactive ICD10 Worksheet Patient Problems: Problems Problem Status Onset Pneumonia Acute
--- NOTE | 2016-07-19 12:54 | PDINTPN ---
Outside Food Server Progress Note Assessment/Plan: Assessment/plan: 80 [place] F admitted with PNA and TB r/o in setting of asthma. Initialy stable but decomensated on floor and required brief intubation. Underwent BAL which grew S. Maltophilia- thought to be colonization. Treated with CTX/zithro as well as Tamiflu and improved. Now on minimal O2 requirement. Also found to have Takotsubo CMP- with negative cath and EF 15%. * Respiratory failure with hypercapnea and hypoxia- 2/2 PNA, CHF, asthma; much improved and down to 2-4 lpm O2. Rx includes albuterol, solumedrol 60/6. Will decrease steroids today and start mucomyst to improve cough/clearance. * CMP- agree with JEAN. Remains on Coreg Should be improving. Defer to cards re: fu echo * Nutrition- getting pureed diet but consider re-eval- cultural dietary restrictions may be a barrier Subjective: feels well- denies sob, cp, f/c/s. C/o poor cough Objective: Vital Signs Temp Pulse Resp BP Pulse Ox 37.3 C 84 18 152/86 H 94 07/19/16 08:00 07/19/16 11:21 07/19/16 11:21 07/19/16 10:00 07/19/16 11:21 Microbiology 07/17/16 15:30 - Final Sputum, Induced/Suctioned Laboratory Results 07/19/16 06:20 07/19/16 06:20 07/18/16 07/19/16 07/20/16 05:59 05:59 05:59 Intake Total 500 2496 Output Total 950 910 Balance -450 1586 PT 12.7 SEC (12.0-15.0) 07/16/16 05:45 INR 0.96 (0.83-1.16) 07/16/16 05:45 Physical Exam - Physical Exam General Appearance: alert, no apparent distress, thin EENT: PERRL/EOMI Neck: full range of motion, supple, normal inspection Respiratory: rhonchi (bilateral), No stridor, No wheezing, No prolonged expiration Cardiac/Chest: normal peripheral pulses, regular rate, rhythm, No edema Abdomen: normal bowel sounds, non-tender, soft Skin: normal color, No cyanosis, No diaphoresis Lymphatic: no adenopathy Extremities: normal range of motion, No pedal edema Neuro/Psych: alert, oriented x 3 ICD10 Worksheet Patient Problems: Problems Problem Status Onset Pneumonia Acute
[2016-07-19] MEDS: LISINOPRIL 2.5 MG TAB PO SCH (13:33)
[2016-07-19] MEDS: guaiFENesin 600 MG TAB.ER PO SCH ×2 (15:13→20:24)
[2016-07-19] MEDS ORDERED: NS 1,000 ML IV SCH (15:15)
--- NOTE | 2016-07-19 15:32 | HOSPPROG ---
Hospitalist Progress Note Assessment/Plan: # acute hypoxic and hypercapnic respiratory failure (multifactorial) influenza/ possible bacterial pneumonia/pulmonary edema * improving * on minimal oxygen * status post mechanical ventilation # acute reactive airway exacerbation: * wean steroids * influenza with community-acquired pneumonia * status post treatment #takasubo CM with EF of 35% * beta-gema started today #prerenal azotemia * better * continuing to hold diuretics #bilat hemotympanum suspect TM injury/perf from barotrauma in the setting of positive pressure ventilation -ENT recommends ciprodex ear gtts and outpt followup with audiogram # thoracic compression fracture: noted incidentally on imaging, not symptomatic , defer to pcp starting tx for osteoporosis. Vitamin D levels normal. # severe protein calorie malnutrition: with BMI of 17, cachectic on exam, appetite is poor. Dietary consulted. Subjective: chest congestion. Having difficulty with expectoration Objective: Vital Signs Temp Pulse Resp BP Pulse Ox 37.3 C 66 14 136/65 H 100 07/19/16 08:00 07/19/16 14:00 07/19/16 14:00 07/19/16 13:33 07/19/16 14:00 Microbiology 07/17/16 15:30 - Final Sputum, Induced/Suctioned Laboratory Results 07/19/16 06:20 07/19/16 06:20 07/18/16 07/19/16 07/20/16 05:59 05:59 05:59 Intake Total 500 2496 429 Output Total 950 910 Balance -450 1586 429 PT 12.7 SEC (12.0-15.0) 07/16/16 05:45 INR 0.96 (0.83-1.16) 07/16/16 05:45 chest x-ray personally viewed interpreted discussed with Cardiology and pulmonology - Physical Exam Constitutional: no apparent distress, appears nourished, not in pain Eyes: anicteric sclera, EOMI Ears, Nose, Mouth, Throat: moist mucous membranes, hearing normal Cardiovascular: regular rate and rhythym Respiratory: no respiratory distress, rhonchi ( bilateral), No expiratory wheeze Gastrointestinal: normoactive bowel sounds, soft, non-tender abdomen, no palpable masses Skin: warm Neurologic: AAOx3 Psychiatric: interacting appropriately, not anxious, not encephalopathic, thought process linear ICD10 Worksheet Patient Problems: Problems Problem Status Onset Pneumonia Acute
[2016-07-20] MEDS: ALBUTEROL 3 ML DEYVIAL IH SCH ×4 (04:26→21:04)
[2016-07-20] MEDS: ACETYLCYSTEINE 10% 30 ML VIAL IH SCH ×5 (04:26→21:04)
[2016-07-20 04:51] LABS: ANION GAP 5 mEq/L (8-16); CALCIUM 8.9 mg/dL (8.5-10.4); CARBON DIOXIDE 28 mEq/l (22-31); CHLORIDE 107 mEq/L (97-110); CREATININE 0.7 mg/dL (0.6-1.0); GLOMERULAR FILTRATION RATE > 60; GLUCOSE 136 mg/dL (70-100); POTASSIUM 4.1 mEq/L (3.5-5.2); SODIUM 140 mEq/L (134-144)
[2016-07-20] MEDS: predniSONE 20 MG TAB PO SCH (08:24)
[2016-07-20] MEDS: CARVEDILOL 3.125 MG TAB PO SCH ×2 (08:24→17:31)
[2016-07-20] MEDS: guaiFENesin 600 MG TAB.ER PO SCH ×2 (08:24→21:57)
[2016-07-20] MEDS: CIPROFLOXACIN HCL/DEXAMETH 7.5 ML OTIC DROPS EACHEAR SCH ×2 (08:34→21:57)
[2016-07-20] MEDS: ENOXAPARIN 40 MG/0.4 ML SYR SC SCH (08:35)
[2016-07-20] MEDS: ASPIRIN EC 325 MG TAB PO SCH (09:24)
[2016-07-20] MEDS: LISINOPRIL 2.5 MG TAB PO SCH (09:24)
[2016-07-20] MEDS ORDERED: POLYETHYLENE GLYCOL 3350 17 GM PKT PO PRN (11:06)
[2016-07-20] MEDS ORDERED: BISACODYL 10 MG SUPP PR PRN (11:06)
[2016-07-20] MEDS ORDERED: LACTULOSE 20 GM/30 ML UDCUP PO PRN (11:06)
[2016-07-20] MEDS ORDERED: MAGNESIUM HYDROXIDE 30 ML UDCUP PO PRN (11:06)
--- NOTE | 2016-07-20 11:11 | PDCARPN ---
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 On 07/15, she developed markedly worsening hypoxia, chest pain, and dyspnea, was found to be hypercarbic on ABG. Echo showed depressed EF and WMA. Taken to CCL and found to have normal cors and EF 35% with WMA c/w Takotsubo RAVI. #. Zain RODRIGUES has been on pureed diet with no fluids and developed EMILEE started on IVF with rate of 50 mL/hr lungs diminished with crackles and coarse breath sounds BP has tolerated addition of ACEI off Lasix due to rising BUN which is now 26 #. 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 hypoxic respiratory failure: O2 needs at 4 lpm #. aspiration: currently on purees 07/20/16 11:08 Subjective: Denies dyspnea or cough. Objective: Vital Signs (8 Hrs) Temp Pulse Resp BP Pulse Ox 07/20/16 09:24 150/70 H 07/20/16 07:26 97.5 F 71 20 165/76 H 97 07/20/16 04:00 98.1 F 70 13 162/74 H 98 Intake/Output (24 Hrs) 07/19/16 07/20/16 07/21/16 05:59 05:59 05:59 Intake Total 2496 1269 Output Total 910 1525 550 Balance 1586 -256 -550 Intake: Oral (ml) 100 IV Intake (ml) 1170 1029 IV Infused (ml) 1326 140 Ns 1,000 ml @ 100 mls/hr 826 140 IV CONT AMERICO Rx#: [id number] Ns 500 ml @ Wide Open IV 500 ONCE ONE Rx#:[id number] Output: Urine (ml) 910 1525 550 Catheter 910 Toilet 1525 550 Other: Intake Quantity Yes Sufficient Number of Voids Toilet 3 Number of Stools Toilet 1 Result Diagrams: 07/19/16 06:20 07/20/16 04:04 - Physical Exam Constitutional: no apparent distress Eyes: anicteric sclera Ears, Nose, Mouth, Throat: moist mucous membranes Cardiovascular: regular rate and rhythm Respiratory: reduced air movement, expiratory wheeze, inspiratory crackles Gastrointestinal: normoactive bowel sounds, no tenderness Skin: no rashes, fluctuance, other (L hand) Psychiatric: cooperative, interactive ICD10 Worksheet Patient Problems: Problems Problem Status Onset Pneumonia Acute
[2016-07-20] MEDS ORDERED: FUROSEMIDE 20 MG/2 ML VIAL IVP ONE (12:32)
--- NOTE | 2016-07-20 14:19 | HOSPPROG ---
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 Vitamin D levels normal. # severe protein calorie malnutrition: with BMI of 17, cachectic on exam, appetite is poor. Dietary consulted. Subjective: seems about the same Objective: Vital Signs Temp Pulse Resp BP Pulse Ox 36.4 C 61 16 146/76 H 100 07/20/16 11:27 07/20/16 11:27 07/20/16 11:27 07/20/16 11:27 07/20/16 11:27 Microbiology 07/14/16 22:40 Mycobacterial Smear (GORGE) - Final Sputum, Expectorated 07/13/16 22:15 Mycobacterial Smear (GORGE) - Final Sputum, Expectorated 07/12/16 22:30 Mycobacterial Smear (GORGE) - Final Sputum, Induced/Suctioned 07/17/16 15:30 - Final Sputum, Induced/Suctioned Sputum Culture - Final Stenotrophomonas Maltophilia Laboratory Results 07/19/16 06:20 07/20/16 04:04 07/19/16 07/20/16 07/21/16 05:59 05:59 05:59 Intake Total 2496 1269 240 Output Total 910 1525 950 Balance 1586 -256 -710 PT 12.7 SEC (12.0-15.0) 07/16/16 05:45 INR 0.96 (0.83-1.16) 07/16/16 05:45 discussed with Cardiology tele personally viewed interpreted - normal sinus rhythm - Physical Exam Constitutional: no apparent distress, appears nourished, not in pain Eyes: anicteric sclera, EOMI Ears, Nose, Mouth, Throat: moist mucous membranes, hearing normal, ears appear normal Cardiovascular: regular rate and rhythym, no murmur, rub, or gallop, No JVD, No edema Respiratory: no respiratory distress, other ( coarse rhonchi bilaterally) Gastrointestinal: normoactive bowel sounds, soft, non-tender abdomen, no palpable masses Neurologic: AAOx3 Psychiatric: interacting appropriately, not anxious, not encephalopathic, thought process linear ICD10 Worksheet Patient Problems: Problems Problem Status Onset Pneumonia Acute
[2016-07-20] MEDS: SENNOSIDES/DOCUSATE SODIUM TAB PO SCH (21:57)
[2016-07-21] MEDS: ACETYLCYSTEINE 10% 30 ML VIAL IH SCH ×4 (05:43→22:01)
[2016-07-21] MEDS: ALBUTEROL 3 ML DEYVIAL IH SCH ×4 (05:43→22:10)
[2016-07-21 05:44] LABS: % IMMATURE GRANULYOCYTES 0.8 % (0.0-1.1); ABSOLUTE IMMATURE GRANULOCYTES 0.05 10^3/uL (0.00-0.10); ADD DIFF? NO; ADD MORPH? NO; ADD SCAN? NO; ATYPICAL LYMPHOCYTE FLAG 0 (0-99); FRAGMENT RBC FLAG 0 (0-99); HEMATOCRIT 34.3 % (38.0-47.0); HEMOGLOBIN 10.9 g/dL (12.6-16.3); LEFT SHIFT FLG 10 (0-99); LIPEMIA HEMOLYSIS FLAG 80 (0-99); MEAN CELL HEMOGLOBIN 25.7 pg (27.9-34.1); MEAN CELL HEMOGLOBIN CONCENTR. 31.8 g/dL (32.4-36.7); MEAN CELL VOLUME 80.9 fL (81.5-99.8); MEAN PLATELET VOLUME 10.9 fL (8.7-11.7); PLATELET CLUMPS FLAG 0 (0-99); PLATELET COUNT 164 10^3/uL (150-400); RED BLOOD CELL COUNT 4.24 10^6/uL (4.18-5.33); RED CELL DISTRIBUTION WIDTH 15.9 % (11.5-15.2)
[2016-07-21 05:57] LABS: ANION GAP 7 mEq/L (8-16); CALCIUM 8.7 mg/dL (8.5-10.4); CARBON DIOXIDE 33 mEq/l (22-31); CHLORIDE 98 mEq/L (97-110); CREATININE 0.7 mg/dL (0.6-1.0); GLOMERULAR FILTRATION RATE > 60; GLUCOSE 74 mg/dL (70-100); POTASSIUM 3.7 mEq/L (3.5-5.2); SODIUM 138 mEq/L (134-144)
[2016-07-21] MEDS: predniSONE 20 MG TAB PO SCH (08:58)
[2016-07-21] MEDS: SENNOSIDES/DOCUSATE SODIUM TAB PO SCH ×2 (08:58→22:00)
[2016-07-21] MEDS: guaiFENesin 600 MG TAB.ER PO SCH ×2 (08:58→20:22)
[2016-07-21] MEDS: ENOXAPARIN 40 MG/0.4 ML SYR SC SCH (08:58)
[2016-07-21] MEDS: CARVEDILOL 3.125 MG TAB PO SCH ×2 (08:58→17:20)
[2016-07-21] MEDS: ASPIRIN EC 325 MG TAB PO SCH (08:58)
[2016-07-21] MEDS: LISINOPRIL 2.5 MG TAB PO SCH (08:58)
[2016-07-21] MEDS: CIPROFLOXACIN HCL/DEXAMETH 7.5 ML OTIC DROPS EACHEAR SCH ×2 (09:01→22:00)
[2016-07-21] MEDS ORDERED: FUROSEMIDE 20 MG/2 ML VIAL IVP ONE (11:38)
[2016-07-21] MEDS ORDERED: LISINOPRIL 2.5 MG TAB PO SCH (13:40)
--- NOTE | 2016-07-21 14:11 | HOSPPROG ---
Hospitalist Progress Note Assessment/Plan: # acute hypoxic and hypercapnic respiratory failure (multifactorial) influenza/ possible bacterial pneumonia/pulmonary edema * better today - possibly due to Lasix. will give another dose * on minimal oxygen * status post mechanical ventilation # acute reactive airway exacerbation: * wean steroids * influenza with community-acquired pneumonia * status post treatment #takasubo CM with EF of 35% * beta-gema and Gonzalez when able * will give another dose of Lasix #prerenal azotemia * better #bilat hemotympanum suspect TM injury/perf from barotrauma in the setting of positive pressure ventilation -ENT recommends ciprodex ear gtts and outpt followup with audiogram # thoracic compression fracture: noted incidentally on imaging, not symptomatic , defer to pcp starting tx for osteoporosis. Vitamin D levels normal. # severe protein calorie malnutrition: with BMI of 17, cachectic on exam, appetite is poor. Dietary consulted. Subjective: feels a good amount better today. Still with productive cough Objective: Vital Signs Temp Pulse Resp BP Pulse Ox 36.8 C 67 14 124/64 H 93 07/21/16 12:00 07/21/16 12:00 07/21/16 12:00 07/21/16 12:00 07/21/16 12:00 Microbiology 07/14/16 22:40 Mycobacterial Smear (GORGE) - Final Sputum, Expectorated 07/13/16 22:15 Mycobacterial Smear (GORGE) - Final Sputum, Expectorated 07/12/16 22:30 Mycobacterial Smear (GORGE) - Final Sputum, Induced/Suctioned Laboratory Results 07/21/16 03:57 07/21/16 03:57 07/20/16 07/21/16 07/22/16 05:59 05:59 05:59 Intake Total 1269 340 Output Total 1525 2600 Balance -256 -2260 PT 12.7 SEC (12.0-15.0) 07/16/16 05:45 INR 0.96 (0.83-1.16) 07/16/16 05:45 - Physical Exam Constitutional: no apparent distress, appears nourished, not in pain Eyes: anicteric sclera, EOMI Ears, Nose, Mouth, Throat: moist mucous membranes, hearing normal, ears appear normal Cardiovascular: regular rate and rhythym, no murmur, rub, or gallop Respiratory: no respiratory distress, other ( improved rhonchi but still present more on the right) Gastrointestinal: normoactive bowel sounds, soft, non-tender abdomen, no palpable masses Skin: warm Neurologic: AAOx3 Psychiatric: interacting appropriately, not anxious, not encephalopathic, thought process linear ICD10 Worksheet Patient Problems: Problems Problem Status Onset Pneumonia Acute
[2016-07-22 05:22] LABS: ANION GAP 5 mEq/L (8-16); CALCIUM 8.6 mg/dL (8.5-10.4); CARBON DIOXIDE 36 mEq/l (22-31); CHLORIDE 96 mEq/L (97-110); CREATININE 0.6 mg/dL (0.6-1.0); GLOMERULAR FILTRATION RATE > 60; GLUCOSE 70 mg/dL (70-100); MAGNESIUM 1.9 mg/dL (1.6-2.3); SODIUM 137 mEq/L (134-144)
[2016-07-22] MEDS: ALBUTEROL 3 ML DEYVIAL IH SCH ×4 (05:41→21:11)
[2016-07-22] MEDS: ACETYLCYSTEINE 10% 30 ML VIAL IH SCH ×2 (05:41→10:08)
[2016-07-22] MEDS ORDERED: LISINOPRIL 2.5 MG TAB PO SCH (08:37)
--- NOTE | 2016-07-22 08:49 | PDCARPN ---
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 On 07/15, she developed markedly worsening hypoxia, chest pain, and dyspnea, was found to be hypercarbic on ABG, requiring intubation ( now extubated). Echo showed depressed EF 15% and WMA. Taken to CCL and found to have normal cors and EF 35% with WMA c/w Takotsubo CM. #. Takotsubo CM lungs diminished with crackles and coarse breath sounds BP has tolerated addition of ACEI/ will increase this with target SBP 90-120 keep Coreg dose same as this may worsen bronchospasm PRN lasix dosing per IM #. Influenza A with bacterial pna: hospitalist #. hypoxic respiratory failure: supplemental O2 needs at 2 lpm #. aspiration: currently on purees/thickened liquids and off IVF 07/22/16 08:48 Subjective: Sleeping. Spoke with son Pavel. Objective: Vital Signs (8 Hrs) Temp Pulse Resp BP Pulse Ox 07/22/16 08:00 98.1 F 71 19 136/66 H 94 07/22/16 05:42 79 18 93 07/22/16 04:00 98.5 F 77 20 150/76 H 93 Intake/Output (24 Hrs) 07/21/16 07/22/16 07/23/16 05:59 05:59 05:59 Intake Total 340 840 Output Total 2600 525 Balance -2260 315 Intake: Oral (ml) 100 840 IV Infused (ml) 240 Ns 1,000 ml @ 100 mls/hr 240 IV CONT AMERICO Rx#: [id number] Output: Urine (ml) 2600 525 Bedside Commode 125 Toilet 2600 400 Other: Intake Quantity Yes Sufficient Number of Voids Toilet 2 1 Result Diagrams: 07/21/16 03:57 07/22/16 04:05 Telemetry: SR - Physical Exam Constitutional: no apparent distress, cachectic Cardiovascular: regular rate and rhythm, no murmurs Respiratory: reduced air movement, expiratory wheeze, bronchial breath sounds Skin: no edema, No erythema, No fluctuance ICD10 Worksheet Patient Problems: Problems Problem Status Onset Pneumonia Acute
[2016-07-22] MEDS: ENOXAPARIN 40 MG/0.4 ML SYR SC SCH (09:15)
[2016-07-22] MEDS: guaiFENesin 600 MG TAB.ER PO SCH ×2 (09:16→20:49)
[2016-07-22] MEDS: CARVEDILOL 3.125 MG TAB PO SCH ×2 (09:16→18:32)
[2016-07-22] MEDS: ASPIRIN EC 325 MG TAB PO SCH (09:16)
[2016-07-22] MEDS: predniSONE 20 MG TAB PO SCH (09:16)
[2016-07-22] MEDS: LISINOPRIL 10 MG TAB PO SCH (09:17)
[2016-07-22] MEDS: SENNOSIDES/DOCUSATE SODIUM TAB PO SCH ×2 (09:18→20:48)
[2016-07-22] MEDS: CIPROFLOXACIN HCL/DEXAMETH 7.5 ML OTIC DROPS EACHEAR SCH ×2 (09:18→20:50)
[2016-07-22] MEDS: FUROSEMIDE 20 MG TAB PO SCH (13:21)
--- NOTE | 2016-07-22 14:19 | HOSPPROG ---
Hospitalist Progress Note Assessment/Plan: # acute hypoxic and hypercapnic respiratory failure (multifactorial) influenza/ possible bacterial pneumonia/pulmonary edema * continues to improve slowly * on minimal oxygen * status post mechanical ventilation # acute reactive airway exacerbation: * continue prednisone * influenza with community-acquired pneumonia * status post treatment #takasubo CM with EF of 35% * beta-gema and Gonzalez when able * will start low-dose Lasix, will talk to Cardiology about what home regimen should be * dysphagia * will get a video swallow to clear for thin liquids #prerenal azotemia * better #bilat hemotympanum suspect TM injury/perf from barotrauma in the setting of positive pressure ventilation -ENT recommends ciprodex ear gtts and outpt followup with audiogram # thoracic compression fracture: noted incidentally on imaging, not symptomatic , defer to pcp starting tx for osteoporosis. Vitamin D levels normal. # severe protein calorie malnutrition: with BMI of 17, cachectic on exam, appetite is poor. Dietary consulted * home tomorrow hopefully. Subjective: continues to improve. Wants to go home Objective: Vital Signs Temp Pulse Resp BP Pulse Ox 36.6 C 73 18 113/62 97 07/22/16 11:30 07/22/16 11:30 07/22/16 11:30 07/22/16 11:30 07/22/16 13:36 Laboratory Results 07/21/16 03:57 07/22/16 04:05 07/21/16 07/22/16 07/23/16 05:59 05:59 05:59 Intake Total 340 840 Output Total 2600 525 Balance -2260 315 PT 12.7 SEC (12.0-15.0) 07/16/16 05:45 INR 0.96 (0.83-1.16) 07/16/16 05:45 - Physical Exam Constitutional: no apparent distress, appears nourished, not in pain Eyes: anicteric sclera, EOMI Ears, Nose, Mouth, Throat: moist mucous membranes, hearing normal, ears appear normal Cardiovascular: regular rate and rhythym, no murmur, rub, or gallop Respiratory: no respiratory distress, rhonchi Gastrointestinal: normoactive bowel sounds, soft, non-tender abdomen, no palpable masses Skin: warm Neurologic: AAOx3 Psychiatric: interacting appropriately, not anxious, not encephalopathic, thought process linear ICD10 Worksheet Patient Problems: Problems Problem Status Onset Pneumonia Acute
[2016-07-23] MEDS: ALBUTEROL 3 ML DEYVIAL IH SCH ×3 (06:00→16:28)
[2016-07-23] MEDS: predniSONE 20 MG TAB PO SCH (08:34)
[2016-07-23] MEDS: SENNOSIDES/DOCUSATE SODIUM TAB PO SCH (08:34)
[2016-07-23] MEDS: ENOXAPARIN 40 MG/0.4 ML SYR SC SCH (08:34)
[2016-07-23] MEDS: ASPIRIN EC 325 MG TAB PO SCH (08:35)
[2016-07-23] MEDS: CARVEDILOL 3.125 MG TAB PO SCH (08:35)
[2016-07-23] MEDS: guaiFENesin 600 MG TAB.ER PO SCH (08:35)
[2016-07-23] MEDS: LISINOPRIL 10 MG TAB PO SCH (08:35)
[2016-07-23] MEDS: FUROSEMIDE 20 MG TAB PO SCH (08:36)
[2016-07-23] MEDS: CIPROFLOXACIN HCL/DEXAMETH 7.5 ML OTIC DROPS EACHEAR SCH (08:37)
[2016-07-23 12:42] VITALS: O2SAT 98
[2016-07-23 16:20] VITALS: BP 95/59; PULSE 80; RESP 16; TEMP 98
--- NOTE | 2016-07-23 17:54 | GDS ---
DISCHARGE DIAGNOSES: 1. Influenza. 2. Superimposed community-acquired pneumonia. 3. Takotsubo cardiomyopathy. 4. Acute hypoxic and hypercapnic respiratory failure. 5. Asthma exacerbation. 6. Prerenal azotemia, resolved. 7. Bilateral hemotympanum from barotrauma. 8. Thoracic compression fracture, old. HISTORY: This is a 80-year-old, who presented with acute hypoxic respiratory failure. HOSPITAL COURSE: The patient was diagnosed with influenza A. She came in with EKG changes and abno rmal echocardiogram that showed EF of 15%. She had undergone angiogram, which showed normal coronar y arteries and physiology consistent with takotsubo cardiomyopathy. She had significant hypoxic res piratory failure, and was in the ICU and required intubation. She was also treated for community-ac quired pneumonia for right upper lobe infiltrate. She also had AFB, which were negative x3 at the s dilcia time. She had significant bronchospasm, as well, requiring steroids. She was extubated and slo wly got better. She has had periods of prerenal azotemia from the excessive diuresis, but this reso lved. The patient continued to improve. She is requiring minimal oxygen, but [facility] She is on oral steroids. She is on medications for cardiomyopathy. She will be discharged h [facility] with close followup with Cardiology. DISPOSITION: Home. DISCHARGE FOLLOWUP: She was discharged with followup instructions with Cardiology in 1-2 weeks. An appointment has been made for her. TIME SPENT: Greater than 30 minutes was spent on discharge. /[id number]/MODL
== END 2016-07-23 17:49 | disposition home or self-care (01) | DRG 163 ==
LOC: F3E 07-13 07:45 → F2N 07-15 14:47 → F2W 07-19 15:23
PROVIDERS: ADMIT Internal Medicine; ATTEND Internal Medicine
PROC: 5A1945Z Respiratory Ventilation, 24-96 Consecutive Hours (ICD-10-PCS; 2016-07-15)
PROC: 0BH17EZ Insertion of Endotracheal Airway into Trachea, Via Natural or Artificial Opening (ICD-10-PCS; 2016-07-15)
PROC: B2151ZZ Fluoroscopy of Left Heart using Low Osmolar Contrast (ICD-10-PCS; 2016-07-15)
PROC: B2111ZZ Fluoroscopy of Multiple Coronary Arteries using Low Osmolar Contrast (ICD-10-PCS; 2016-07-15)
PROC: 4A023N7 Measurement of Cardiac Sampling and Pressure, Left Heart, Percutaneous Approach (ICD-10-PCS; 2016-07-15)
PROC: 0BBB8ZZ Excision of Left Lower Lobe Bronchus, Via Natural or Artificial Opening Endoscopic (ICD-10-PCS; principal; 2016-07-17)
PROC: 0B968ZZ Drainage of Right Lower Lobe Bronchus, Via Natural or Artificial Opening Endoscopic (ICD-10-PCS; principal; 2016-07-17)
PROC: 0BB Respiratory System, Excision (ICD-10-PCS; principal; 2016-07-17)
PROC: 0BB Respiratory System, Excision (ICD-10-PCS; principal; 2016-07-17)
PROC: 0BB Respiratory System, Excision (ICD-10-PCS; principal; 2016-07-17)
PROC: 0BB68ZZ Excision of Right Lower Lobe Bronchus, Via Natural or Artificial Opening Endoscopic (ICD-10-PCS; principal; 2016-07-17)
PROC: 0BB Respiratory System, Excision (ICD-10-PCS; principal; 2016-07-17)
DX: J10.00 Influenza due to other identified influenza virus with unspecified type of pneumonia (principal); J18.9 Pneumonia, unspecified organism; J96.01 Acute respiratory failure with hypoxia; J96.02 Acute respiratory failure with hypercapnia; J45.901 Unspecified asthma with (acute) exacerbation; I51.81 Takotsubo syndrome; T70.0XXA Otitic barotrauma, initial encounter; I50.21 Acute systolic (congestive) heart failure; E43 Unspecified severe protein-calorie malnutrition; S22.068S Other fracture of T7-T8 thoracic vertebra, sequela; Z68.1 Body mass index [BMI] 19.9 or less, adult
CPT/HCPCS: 82947-QW; 87449-90; 87556-90; 92523-GN; 92526-GN; 92611-GN; 96365; 97116-GP; 97161-GP; 97165-GO; 97168-GO; 97530-GP; 97535-GO; J0330; J0456; J0461; J0696; J1644; J1650; J2250; J2704; J3010; Q9967